=== PATIENT | male | born 1955 | race Caucasian/White ===

== ENCOUNTER 2019-10-16 17:50 | Inpatient (IN) | payer OTHER ==
[~2019-10-16] VITALS: Ht 172.7 cm; Wt 137.0 kg
[2019-10-16] MEDS ORDERED: HEPARIN SOD (PORCINE) 5,000 UNIT/ML VIAL IV ONE (19:00)
[2019-10-16] MEDS ORDERED: AMIODARONE HCL 150MG 100 ML IV SCH (19:00)
[2019-10-16] MEDS ORDERED: AMIODARONE HCL 360MG 200 ML IV SCH (19:00)
[2019-10-16] MEDS ORDERED: ASPIRIN 81 MG CHEW TAB PO ONE ×2 (19:00→22:15)
[2019-10-16 19:03] LABS: BASOPHILS % 0.3 % (0.0-1.0); EOSINOPHILS # (AUTO) 0.1 (0.0-0.4); EOSINOPHILS % 1.2 % (0.0-6.0); HEMATOCRIT 48.3 % (38.2-49.6); HEMOGLOBIN 15.6 g/dL (14.0-18.0); LYMPHOCYTES # (AUTO) 2.6 (1.0-3.2); MEAN CORPUSCULAR HEMOGLOBIN 31.1 pg (28-32); MEAN CORPUSCULAR HGB CONC 32.3 g/dL (31-35); MEAN CORPUSCULAR VOLUME 96.2 fL (81-99); MONOCYTES # (AUTO) 0.8 (0.2-0.8); MONOCYTES % 7.3 % (4.4-11.3); NEUTROPHILS # (AUTO) 6.8 (2.1-6.9); NEUTROPHILS % 65.9 % (38.7-80.0); PLATELET COUNT 246 x10e3/uL (140-360); RED BLOOD COUNT 5.02 x10e6/uL (4.3-5.7); RED CELL DISTRIBUTION WIDTH 15.4 % (11.7-14.4)
[2019-10-16] MEDS ORDERED: DILTIAZEM HCL 5 MG/ML 5 ML VIAL IV STA (19:04)
[2019-10-16] MEDS ORDERED: AMIODARONE HCL 150MG 100 ML ONE (19:09)
[2019-10-16 19:10] LABS: INR 1.07; PARTIAL THROMBOPLASTIN TIME 25.9 seconds (23.8-35.5); PROTHROMBIN TIME 14.6 seconds (11.9-14.5)
[2019-10-16 19:18] LABS: ALBUMIN 4.1 g/dL (3.5-5.0); ALBUMIN/GLOBULIN RATIO 1.6 (0.8-2.0); ANION GAP 11.4 mmol/L (8-16); CALCIUM 9.4 mg/dL (8.4-10.2); CREATININE, SERUM 1.25 mg/dL (0.72-1.25); POTASSIUM 4.4 mmol/L (3.5-5.1)
[2019-10-16] MEDS ORDERED: AMIODARONE 900MG 500 ML IV SCH (19:20)
[2019-10-16] MEDS ORDERED: AMIODARONE 900MG 500 ML IV ONE (19:21)
[2019-10-16] MEDS: AMIODARONE 900MG 500 ML IV SCH (19:27)
[2019-10-16] MEDS: HEPARIN 25,000 UNIT 1,000 UNIT in DEXTROSE 5% 250ML 250 ML IV SCH (19:30)
[2019-10-16 19:37] LABS: CREATINE KINASE MB 3.4 ng/mL (0-5.0); THYROID STIMULATING HORMONE 1.123 uIU/mL (0.350-4.940)
[2019-10-16] MEDS ORDERED: DIGOXIN INJ 0.25 MG/ML 2 ML AMP ONE (19:44)
[2019-10-16] MEDS ORDERED: DIGOXIN INJ 0.25 MG/ML 2 ML AMP IV ONE (19:45)
--- NOTE | 2019-10-16 20:28 | Diagnostic Imaging Report ---
EXAMINATION: CHEST SINGLE (PORTABLE) INDICATION: wide-complex afib RVR, acute CHF COMPARISON: None FINDINGS: AP view TUBES and LINES: None. LUNGS: Lungs are well inflated. There is right basilar opacity which could be due to effusion and or atelectasis. HEART AND MEDIASTINUM: The cardiomediastinal silhouette is unremarkable. BONES AND SOFT TISSUES: No acute osseous lesion. Soft tissues are unremarkable. UPPER ABDOMEN: No free air under the diaphragm. IMPRESSION: Right basilar opacity which could be due to effusion and or atelectasis. Signed by: Daron Reyez MD on 10/16/2019 8:26 PM
[2019-10-16] MEDS ORDERED: LIDOCAINE JELLY 2% 10ML URO-JET TOP ONE (21:15)
--- NOTE | 2019-10-16 21:15 | NUR ---
301 ml noted on bladder scan.
[2019-10-16] MEDS ORDERED: LIDOCAINE JELLY 2% 10ML URO-JET ONE (21:16)
[2019-10-16] MEDS ORDERED: DEXTROSE 50% SYRINGE 50 ML IV PRN (22:15)
[2019-10-16] MEDS: FAMOTIDINE 20 MG/2 ML VIAL IV SCH (22:15)
[2019-10-16] MEDS ORDERED: SODIUM CHLORIDE FLUSH 10 ML SYR INJ PRN (22:15)
--- OUTSIDE RECORDS SUMMARY | 2019-10-16 22:17 | XMS REPORT ---
Author Author [facility] Address Unknown Phone Unavailable Care Team Providers Care Health Occupations Instructor Name Role Phone Dale GONZALEZ Unavailable Unavailable Problems This patient has no known problems. Allergies, Adverse Reactions, Alerts This patient has no known allergies or adverse reactions. Medications This patient has no known medications. Results Test Description Test Time Test Comments Text Results Atomic Results Result Comments CHEST SINGLE (PORTABLE) 2019-10-16 20:21:00 [place] [id number] Patient Name: RUDY ADKINS MR #: [id number] : 1955 Age/Sex: 64/M Req #: [id number] Adm Physician: Ordered by: PREMA GONZALEZ MD Report #: [id number] Location: ER Room/Bed: Procedure: [id number] DX/CHEST SINGLE (PORTABLE) Exam Date: 10/16/19 Exam Time: 1954 REPORT STATUS: Signed EXAMINATION: CHEST SINGLE (PORTABLE) INDICAT ION: wide-complex afib RVR, acute CHF COMPARISON: None FINDINGS: AP view TUBES and LINES: None. LUNGS: Lungs are well inflated. There is right basilar opacity which could be due to effusion and or atelectasis. HEART AND MEDIASTINUM: The cardiomediastinal silhouette is unremarkable. BONES AND SOFT TISSUES: No acute osseous lesion. Soft tissues are unremarkable. UPPER ABDOMEN: No free air under the diaphragm. IMPRESSION: Right basilar opacity which could be due to effusion and or atelectasis. Signed by: Daron Kirk MD on 10/16/2019 8:26 PM Dictated By: DARON KIRK MD 25 Transcribed By: TRUDY on 10/16/192025 COPY TO: PREMA GONZALEZ MD
[2019-10-16 23:00] VITALS: BP 133/101
--- NOTE | 2019-10-16 23:14 | NUR ---
Pt thinks he already received pneumonia vaccine but is going to verify with PCP in the morning. Addendum: 10/16/19 at 2314 by Petrona Narvaez RN Amended: Links added.
[2019-10-16 23:17] VITALS: BP 120/90
[2019-10-17] VITALS (24 sets, daily range): BP systolic 85–143; BP diastolic 66–117
[2019-10-17] MEDS ORDERED: AMIODARONE HCL 360MG 200 ML IV SCH
--- NOTE | 2019-10-17 00:20 | NUR ---
PTT is therapeutic per weight based protocol. Repeat ptt in 6 hours. Addendum: 10/17/19 at 0106 by Petrona Narvaez RN Amended: Links added.
[2019-10-17] MEDS: AMIODARONE 900MG 500 ML IV SCH (01:09)
--- NOTE | 2019-10-17 04:55 | NUR ---
Judi baltazar present and drawing AM blood lab specimen.
[2019-10-17 05:22] LABS: BASOPHILS % 0.3 % (0.0-1.0); EOSINOPHILS # (AUTO) 0.2 (0.0-0.4); EOSINOPHILS % 1.5 % (0.0-6.0); HEMOGLOBIN 15.1 g/dL (14.0-18.0); LYMPHOCYTES # (AUTO) 2.5 (1.0-3.2); LYMPHOCYTES % 22.4 % (18.0-39.1); MEAN CORPUSCULAR HEMOGLOBIN 30.9 pg (28-32); MEAN CORPUSCULAR HGB CONC 32.1 g/dL (31-35); MEAN CORPUSCULAR VOLUME 96.1 fL (81-99); MONOCYTES # (AUTO) 0.9 (0.2-0.8); MONOCYTES % 8.1 % (4.4-11.3); NEUTROPHILS # (AUTO) 7.6 (2.1-6.9); NEUTROPHILS % 67.3 % (38.7-80.0); PLATELET COUNT 225 x10e3/uL (140-360); RED BLOOD COUNT 4.89 x10e6/uL (4.3-5.7); RED CELL DISTRIBUTION WIDTH 15.2 % (11.7-14.4)
--- NOTE | 2019-10-17 06:00 | NUR ---
PTT 49.8. Increase rate by 100units/hr and repeat ptt in 6 hours. Next ptt due at 1200 today. New rate 1100 units/hr. Addendum: 10/17/19 at 0607 by Petrona Narvaez RN Amended: Links added.
[2019-10-17 06:09] LABS: CREATINE KINASE MB 2.5 ng/mL (0-5.0)
[2019-10-17] MEDS ORDERED: TADALAFIL5 MG PO (06:14)
[2019-10-17] MEDS ORDERED: LEVOTHYROXINE75 MCG PO (06:15)
[2019-10-17] MEDS ORDERED: FARXIGA10 MG PO (06:16)
[2019-10-17] MEDS ORDERED: LISINOPRIL-HCT1 EACH PO (06:18)
[2019-10-17] MEDS ORDERED: MELOXICAM7.5 MG PO (06:18)
[2019-10-17 06:53] LABS: ALANINE AMINOTRANSFERASE 47 IU/L (0-55); ALBUMIN 3.7 g/dL (3.5-5.0); ALBUMIN/GLOBULIN RATIO 1.5 (0.8-2.0); ALKALINE PHOSPHATASE 29 IU/L (40-150); ANION GAP 14.2 mmol/L (8-16); BLOOD UREA NITROGEN 20 mg/dL (7-26); BUN/CREATININE RATIO 19 (6-25); CALCIUM 8.9 mg/dL (8.4-10.2); CARBON DIOXIDE 22 mmol/L (22-29); CHLORIDE 105 mmol/L (98-107); CREATININE, SERUM 1.03 mg/dL (0.72-1.25); EST GLOMERULAR FILTRATION RATE > 60 ML/MIN (60-); POTASSIUM 4.2 mmol/L (3.5-5.1); SODIUM 137 mmol/L (136-145)
[2019-10-17 07:13] LABS: CHOL/HDL RATIO 3.4 (3.9-4.7); CHOLESTEROL 160 MD/DL (0-199); GLUCOSE 119 mg/dL (74-118); HDL CHOLESTEROL 47 MG/DL (40-60); LDL CHOLESTEROL 100 MG/DL (60-130); TRIGLYCERIDES 67 MG/DL (0-149)
[2019-10-17] MEDS: INSULIN REGULAR, HUMAN 100 UNIT/1 ML 3ML VIAL SQ SCH ×4 (07:30→21:00)
[2019-10-17] MEDS: FAMOTIDINE 20 MG/2 ML VIAL IV SCH (10:10)
[2019-10-17] MEDS: LEVOTHYROXINE SODIUM 75 MCG TAB PO SCH (10:10)
--- NOTE | 2019-10-17 10:22 | NUR ---
LEFT MESSAGE REGARDING NEW CONSULT FOR DR Darlene MULTANI PER PATIENT REQUEST. PATIENT SEES DR MULTANI OUTPATIENT., LEFT MESSAGE WITH DR BEACH'S OFFICE NOTIFYING OF CHANGE AND CANCELATION OF CONSULT.
[2019-10-17] MEDS: METOPROLOL TARTRATE 25 MG TAB PO SCH ×2 (12:29→17:02)
[2019-10-17] MEDS: FUROSEMIDE INJ 10 MG/ML 4 ML VIAL IV SCH ×3 (13:00→22:00)
--- NOTE | 2019-10-17 14:28 | Consultation ---
DATE OF CONSULTATION: 10/18/2019 Pulmonary Critical Care Consultation CHIEF COMPLAINT: Rapid atrial fibrillation, right-sided heart failure and COPD. HISTORY OF PRESENT ILLNESS: The patient is a 64-year-old man. He has a vague history of COPD diagnosed by spirometry at work. He has never been on any inhalers. He has a history of obstructive sleep apnea and uses CPAP. The patient notes worsening leg edema for the past three weeks. He also started having scrotal edema a week or two ago. He also reports some heartburn or indigestion when he exerts himself. He came to the emergency department last night with worsening dyspnea and palpitations. He was found to have rapid atrial fibrillation. He was given an amiodarone drip and is now in the intensive care unit. He was also started on heparin. PAST SURGICAL HISTORY: Status post hydrocele repair. PAST MEDICAL HISTORY: 1. Benign prostatic hypertrophy. 2. Hypertension. 3. Type 2 diabetes. 4. Obstructive sleep apnea. 5. Spirometry suggesting COPD at work. SOCIAL HISTORY: The patient has been a lifelong smoker. He has been an occasional drinker. ALLERGIES: NO KNOWN DRUG ALLERGIES. FAMILY HISTORY: Significant for heart problems. REVIEW OF SYSTEMS: The patient is afebrile. He has no headache. He is not complaining of any neck pain. He has no chest pain. He does have some palpitations. He also notes some difficulty breathing. He has minimal cough. He has no abdominal pain. He has no nausea or vomiting. He does have some scrotal edema. He also has some leg edema. PHYSICAL EXAMINATION: VITAL SIGNS: The patient is afebrile. The blood pressure is 108/80 and the saturation is 99% on 2 L. Heart rate is 130 to 140. HEENT: Shows no facial swelling or erythema. CARDIAC: Reveals a regular rate and rhythm with normal S1 and S2. There are no murmurs or rubs heard. LUNGS: Auscultation of lungs reveals decreased breath sounds at the bases. There is no wheezing. ABDOMEN: Soft, nontender. There is no rebound or guarding. There is some scrotal edema. There is 1 to 2+ leg edema. NEUROLOGIC: No focal abnormalities on neurological exam. LABORATORY DATA: White blood cell count is 11.3 and hemoglobin is 15.1. Platelet count is 225. BUN to creatinine ratio is normal. The other electrolytes are within normal limits. BNP is 239. TSH is 1.123. RADIOGRAPHIC DATA: Chest x-ray shows a right basal opacity. IMPRESSION: 1. Atrial fibrillation with rapid ventricular response. 2. Acute and unspecified congestive heart failure. 3. Scrotal edema. 4. Prostatic hypertrophy. 5. History of prior hydrocele. 6. Obstructive sleep apnea. PLAN: 1. Continue amiodarone. 2. Continue heparin. 3. Diuretics as needed. 4. Diltiazem as needed. 5. Continue CPAP. Trevon Zaragoza MD [facility]/MODL /[id number]
[2019-10-17] MEDS: METOPROLOL TARTRATE INJ 1 MG/ML VIAL IV PRN (14:45)
[2019-10-17 15:32] LABS: CREATINE KINASE MB 2.2 ng/mL (0-5.0)
[2019-10-17] MEDS ORDERED: AMBIEN10 MG PO (16:03)
[2019-10-17] MEDS: HEPARIN 25,000 UNIT 1,000 UNIT in DEXTROSE 5% 250ML 250 ML IV SCH (16:52)
[2019-10-17] MEDS: AMIODARONE HCL 200 MG TAB PO SCH (17:02)
--- NOTE | 2019-10-17 18:54 | Consultation ---
DATE OF CONSULTATION: 10/17/2019 Cardiology Consultation REQUESTING PHYSICIAN: Edwardo Mar MD REASON FOR CONSULTATION: Atrial fibrillation with rapid ventricular response. HISTORY OF PRESENT ILLNESS: This is a 64-year-old male with history of hypothyroidism and diabetes mellitus, who presents with complaints of lower extremity edema. The patient reports he has been having what he describes as heartburn with exertion for the last year, which has been progressive since onset such that he can no longer climb a flight of stairs without symptoms. He noted lower extremity swelling, beginning 3 weeks ago and attempted to treat this himself with compression stockings. However, he notes that his lower extremity swelling worsened 3 days ago with progressive swelling and swelling in his scrotum. He therefore presented to the ER for further evaluation. He denies any chest pain or shortness of breath, but he does note he is short of breath with lying down for the last couple of months despite use of CPAP. On evaluation in the ER, he was found to be in atrial fibrillation with rapid ventricular response for which Cardiology is consulted for management. REVIEW OF SYSTEMS: Negative except as per HPI. PAST MEDICAL HISTORY: 1. Diabetes mellitus type 2. 2. Hypothyroidism. 3. Benign prostatic hypertrophy. PAST SURGICAL HISTORY: 1. Hydrocele surgery. 2. Acromionectomy. ALLERGIES: NO KNOWN DRUG ALLERGIES. MEDICATIONS: Please see medication list. SOCIAL HISTORY: He reports he previously smoked one pack a day for decades, but now smokes cigars a few times a week. He does drink, but denies any illicit drugs. FAMILY HISTORY: Pertinent for father, who required ablation and mother with coronary artery disease with stent insertion. PHYSICAL EXAMINATION: VITAL SIGNS: Temperature 97.8 degrees, pulse 136, respiratory rate 24, blood pressure 118/82, and oxygen saturation 98% on room air. GENERAL: A morbidly obese gentleman, in no acute distress. Well developed, well nourished. HEENT: Normocephalic, atraumatic. Pupils equal. No scleral icterus. NECK: Supple. No thyromegaly or cervical lymphadenopathy. No carotid bruits. LUNGS: Clear to auscultation bilaterally. No wheezes or crackles. CARDIOVASCULAR: Irregularly irregular, tachycardic. Normal S1, S2. No murmur appreciated. ABDOMEN: Soft, nontender. EXTREMITIES: 3+ pitting edema. NEUROLOGIC: Nonfocal exam. LABORATORY DATA: CBC 11.3, hemoglobin 15.1, hematocrit 47, platelets 225. Sodium 137, potassium 4.2, chloride 105, CO2 of 22. BUN 20, creatinine 1.03. Troponin 0.073. BNP 239. Cholesterol 160, LDL 100, HDL 47, triglycerides 67. EKG, atrial fibrillation with rapid ventricular response, left axis deviation, right bundle-branch block. Echocardiogram demonstrates severe systolic left ventricular dysfunction with LVEF of 20% to 25%. No significant valvular abnormalities were appreciated. Chest x-ray, right basilar opacity which could be due to effusion and/or atelectasis. IMPRESSION: 1. Acute systolic heart failure. 2. Atrial fibrillation with rapid ventricular response. 3. Angina. 4. Diabetes mellitus. 5. Hypothyroidism. 6. Benign prostatic hyperplasia. RECOMMENDATIONS: No evidence of myocardial infarction on serial cardiac biomarkers. Start aspirin as well as atorvastatin. Given progressive angina, the patient will need ischemic evaluation. Once his heart rate is controlled and he is euvolemic, start the patient on metoprolol for rate control. Continue amiodarone protocol. Start p.o. amiodarone this evening. Continue heparin drip for CVA prophylaxis. Anticoagulation was discussed with the patient and decision was made for the DOAC. The patient was started on Lasix, given his volume overload. He will need to be transitioned to metoprolol succinate upon discharge. Continue JUSTEN inhibitor if renal function is stable. Thank you for this consult. We will continue to follow. Tami Miramontes MD [facility]/MODL /[id number]
--- NOTE | 2019-10-17 20:28 | NUR ---
PTT 47.7- Increased heparin gtt from 1100 un/hr to 1200 un/hr per protocol. Witnessed by Shayla STEIN.
[2019-10-17] MEDS ORDERED: ATORVASTATIN 40 MG TAB PO SCH (21:00)
[2019-10-17] MEDS ORDERED: ATORVASTATIN 20 MG TAB PO SCH (21:00)
[2019-10-17] MEDS: FAMOTIDINE 20 MG TAB PO SCH (21:27)
[2019-10-18] VITALS (24 sets, daily range): BP systolic 84–131; BP diastolic 64–108
--- NOTE | 2019-10-18 01:00 | Consultation ---
DATE OF CONSULTATION: 10/17/2019 Dr. James Parker dictating the consultation for Dr. Mar and Dr. Trevon Bedolla. REASON FOR CONSULTATION: Urinary retention. HISTORY: This is a 64-year-old male, known to me since eight years ago. I did a hydrocelectomy on the patient. The patient has come to the hospital because of pressure in the chest as well as shortness of breath. The shortness of breath got worse, the patient got worried and came to the ER. In the emergency room, he was noted to be in atrial fibrillation and he was admitted to the intensive care unit for treatment and appropriate consultations have been obtained. From the urological standpoint, the patient has an indwelling Mireles catheter because he could not urinate. He had 321 mL of urine in the bladder yesterday when he said he had pressure. The patient states that over the last 2-3 weeks, he has noted that he has more difficulties urinating, having frequency, urgency, dribbling, split flow and feeling of incomplete voiding. For years, he has been on Flomax, which apparently did not work well. He also has been on Hytrin also did not work well and he states that daily Cialis 5 mg is what makes him urinate better. The patient had to have a coude catheter put in yesterday. I wonder if he has a very high-riding and will need to have further evaluation in the future. Examination is deferred at this time. The patient is eating, although I looked at his scrotum and it seems like he has a recurrent hydrocele, probably caused by pushing to urinate that the patient had been doing over the last 3 to 5 days. PAST MEDICAL HISTORY: The patient has had hypertension, diabetes mellitus type 2, obstructive sleep apnea, and COPD. PAST SURGICAL HISTORY: Urological. He had a hydrocele repair, left-sided in 2011. SOCIAL HISTORY: He is . He is a lifelong smoker and has continued to smoke. MEDICATIONS: The patient is at the present time on; metoprolol 5 mg as needed, furosemide 40 mg every 8 hours, metoprolol 25 mg p.o. every 6 hours, and levothyroxine 150 mcg daily. He is receiving now heparin IV. He is getting insulin human regular as per protocol; zolpidem 10 mg, which he takes at night; atorvastatin 40 mg, which he takes at night; aspirin 81 mg, which he takes daily in the mornings; famotidine; Pepcid 20 mg every 12 hours twice a day; and amiodarone 200 mg twice a day. IMPRESSION: Urinary retention, 321 mL residual, indwelling Mireles catheter. RECOMMENDATION: At present, I discussed with the patient that the 1st thing I would do is when his fluids are being better controlled that he has lost some of his edema. He is able to breathe better today. We will give him a voiding trial probably Sunday. If he is not able to urinate into the bladder better, than he will need to have a Mireles catheter until such time that his atrial fibrillation is under control. I told him usually at this point, it would be a weight of approximately 2-3 months until we can put him on Lovenox to do surgery or he has other treatments that we can take him off the blood thinners. The patient is also aware that if this is going to extent for 2-3 months that catheters have complications of erosion, bladder spasm, infections, and we will treat it accordingly as it happens. Currently, he is on daily catheter care. MD MAHENDRA Cabrera/JER /[id number]
[2019-10-18] MEDS: METOPROLOL TARTRATE 50 MG TAB PO SCH ×6 (03:00→21:10)
--- NOTE | 2019-10-18 03:00 | NUR ---
PTT 52.7- therapeutic. No changes made to rate per protocol.
[2019-10-18 05:16] LABS: BASOPHILS % 0.3 % (0.0-1.0); EOSINOPHILS # (AUTO) 0.1 (0.0-0.4); EOSINOPHILS % 1.3 % (0.0-6.0); HEMATOCRIT 47.4 % (38.2-49.6); HEMOGLOBIN 15.1 g/dL (14.0-18.0); LYMPHOCYTES # (AUTO) 2.4 (1.0-3.2); LYMPHOCYTES % 26.1 % (18.0-39.1); MEAN CORPUSCULAR HEMOGLOBIN 30.8 pg (28-32); MEAN CORPUSCULAR HGB CONC 31.9 g/dL (31-35); MEAN CORPUSCULAR VOLUME 96.7 fL (81-99); MONOCYTES # (AUTO) 0.9 (0.2-0.8); MONOCYTES % 9.2 % (4.4-11.3); NEUTROPHILS # (AUTO) 5.8 (2.1-6.9); NEUTROPHILS % 62.8 % (38.7-80.0); PLATELET COUNT 231 x10e3/uL (140-360); RED CELL DISTRIBUTION WIDTH 15.2 % (11.7-14.4)
[2019-10-18 05:55] LABS: ALANINE AMINOTRANSFERASE 39 IU/L (0-55); ALBUMIN 3.5 g/dL (3.5-5.0); ALBUMIN/GLOBULIN RATIO 1.4 (0.8-2.0); ALKALINE PHOSPHATASE 28 IU/L (40-150); ANION GAP 10.3 mmol/L (8-16); BLOOD UREA NITROGEN 19 mg/dL (7-26); BUN/CREATININE RATIO 21 (6-25); CALCIUM 8.7 mg/dL (8.4-10.2); CARBON DIOXIDE 24 mmol/L (22-29); CHLORIDE 107 mmol/L (98-107); CREATININE, SERUM 0.92 mg/dL (0.72-1.25); EST GLOMERULAR FILTRATION RATE > 60 ML/MIN (60-); GLUCOSE 130 mg/dL (74-118); POTASSIUM 4.3 mmol/L (3.5-5.1); SODIUM 137 mmol/L (136-145)
[2019-10-18] MEDS: FUROSEMIDE INJ 10 MG/ML 4 ML VIAL IV SCH ×4 (06:05→21:11)
[2019-10-18] MEDS: LEVOTHYROXINE SODIUM 75 MCG TAB PO SCH (06:06)
[2019-10-18] MEDS: INSULIN REGULAR, HUMAN 100 UNIT/1 ML 3ML VIAL SQ SCH ×4 (07:30→21:00)
[2019-10-18] MEDS: ASPIRIN 81 MG ENTERIC COATED PO SCH (08:17)
[2019-10-18] MEDS: AMIODARONE HCL 200 MG TAB PO SCH ×2 (08:18→18:09)
[2019-10-18] MEDS: FAMOTIDINE 20 MG TAB PO SCH ×2 (08:18→21:10)
[2019-10-18] MEDS: MUPIROCIN 2% OINT 22 GM TUBE TOP SCH ×2 (11:08→18:09)
--- NOTE | 2019-10-18 13:27 | Progress Note ---
DATE: 10/18/2019 SUBJECTIVE: The patient was seen by Cardiology yesterday. He has received metoprolol and is being continued on amiodarone. He was also seen by Urology. PHYSICAL EXAMINATION: VITAL SIGNS: The patient is afebrile. The vital signs are stable. CARDIAC: Reveals regular rate and rhythm with normal S1 and S2. There are no murmurs or rubs heard. LUNGS: Auscultation of lungs shows clear breath sounds bilaterally. There is no wheezing. ABDOMEN: Soft, nontender. There is no rebound or guarding. EXTREMITIES: Show no leg edema or calf tenderness. There is no cyanosis or clubbing. SKIN: Shows no rashes. NEUROLOGIC: Shows no focal abnormalities. LABORATORY DATA: BUN to creatinine ratio is normal. The other electrolytes within normal limits. White blood cell count is 9.2 and hemoglobin is 15.1. The platelet count is 231. IMPRESSION: 1. Atrial fibrillation with rapid ventricular response. 2. Acute on chronic congestive heart failure, unspecified. 3. Scrotal edema. 4. Prostatic hypertrophy. 5. Obstructive sleep apnea. PLAN: 1. Continue amiodarone and Lopressor. 2. Repeat echocardiogram. 3. Continue anticoagulation. 4. Continue Mireles. 5. CPAP at night. Trevon Zaragoza MD [facility]/JER /[id number]
[2019-10-18] MEDS: HEPARIN 25,000 UNIT 1,000 UNIT in DEXTROSE 5% 250ML 250 ML IV SCH (19:00)
[2019-10-18] MEDS: ZOLPIDEM TARTRATE 10 MG TAB PO PRN (21:10)
[2019-10-19] VITALS (21 sets, daily range): BP systolic 89–158; BP diastolic 60–134
[2019-10-19] MEDS: METOPROLOL TARTRATE 50 MG TAB PO SCH ×3 (03:27→15:14)
[2019-10-19 05:39] LABS: BASOPHILS % 0.3 % (0.0-1.0); EOSINOPHILS # (AUTO) 0.1 (0.0-0.4); EOSINOPHILS % 1.4 % (0.0-6.0); HEMATOCRIT 46.1 % (38.2-49.6); HEMOGLOBIN 15.1 g/dL (14.0-18.0); LYMPHOCYTES # (AUTO) 2.2 (1.0-3.2); MEAN CORPUSCULAR HEMOGLOBIN 31.7 pg (28-32); MEAN CORPUSCULAR HGB CONC 32.8 g/dL (31-35); MEAN CORPUSCULAR VOLUME 96.8 fL (81-99); MONOCYTES # (AUTO) 0.9 (0.2-0.8); MONOCYTES % 9.2 % (4.4-11.3); NEUTROPHILS # (AUTO) 6.3 (2.1-6.9); NEUTROPHILS % 65.8 % (38.7-80.0); PLATELET COUNT 210 x10e3/uL (140-360); RED BLOOD COUNT 4.76 x10e6/uL (4.3-5.7); RED CELL DISTRIBUTION WIDTH 15.1 % (11.7-14.4)
[2019-10-19 05:56] LABS: ANION GAP 9.7 mmol/L (8-16); BLOOD UREA NITROGEN 21 mg/dL (7-26); BUN/CREATININE RATIO 20 (6-25); CALCIUM 8.7 mg/dL (8.4-10.2); CARBON DIOXIDE 28 mmol/L (22-29); CHLORIDE 106 mmol/L (98-107); CREATININE, SERUM 1.06 mg/dL (0.72-1.25); EST GLOMERULAR FILTRATION RATE > 60 ML/MIN (60-); GLUCOSE 133 mg/dL (74-118); POTASSIUM 3.7 mmol/L (3.5-5.1); SODIUM 140 mmol/L (136-145)
[2019-10-19] MEDS: LEVOTHYROXINE SODIUM 75 MCG TAB PO SCH (06:17)
[2019-10-19] MEDS: FUROSEMIDE INJ 10 MG/ML 4 ML VIAL IV SCH ×2 (06:17→15:14)
[2019-10-19] MEDS: INSULIN REGULAR, HUMAN 100 UNIT/1 ML 3ML VIAL SQ SCH ×4 (07:14→21:00)
[2019-10-19] MEDS: ASPIRIN 81 MG ENTERIC COATED PO SCH (08:01)
[2019-10-19] MEDS: FAMOTIDINE 20 MG TAB PO SCH ×2 (08:01→21:00)
[2019-10-19] MEDS: MUPIROCIN 2% OINT 22 GM TUBE TOP SCH ×2 (08:01→16:51)
[2019-10-19] MEDS: AMIODARONE HCL 200 MG TAB PO SCH ×2 (08:01→16:51)
--- NOTE | 2019-10-19 09:51 | Diagnostic Imaging Report ---
EXAMINATION: CHEST SINGLE (PORTABLE) INDICATION: Shortness of breath. COMPARISON: Chest radiograph 2019. FINDINGS: TUBES and LINES: None. LUNGS: Lungs are moderately inflated. Persistent patchy opacities at the right lung base. No evidence of pulmonary edema. PLEURA: No pleural effusion or pneumothorax. HEART AND MEDIASTINUM: The cardiomediastinal silhouette is unremarkable. There are atherosclerotic calcifications within the aorta. BONES AND SOFT TISSUES: No acute osseous lesion. Soft tissues are unremarkable. UPPER ABDOMEN: No free air under the diaphragm. IMPRESSION: Persistent patchy right lower lung opacities, which may represent atelectasis or pneumonia in the appropriate clinical setting. Signed by: Dr. Kaushal Austin MD on 10/19/2019 9:48 AM
[2019-10-19] MEDS: METOPROLOL TARTRATE INJ 1 MG/ML VIAL IV PRN (10:30)
--- NOTE | 2019-10-19 11:35 | Progress Note ---
DATE: 10/19/2019 Pulmonary Critical Care Progress Note SUBJECTIVE: The patient still has some tachycardia and atrial fibrillation. He is now on p.o. amiodarone as well as labetalol. He complains of some mild dyspnea and anxiety. He still has a Mireles catheter in place. PHYSICAL EXAMINATION: VITAL SIGNS: The blood pressure is 128/84 and the saturation is 98%. The pulse is 120 to 130. The patient is afebrile. HEENT: Shows no facial swelling or erythema. CARDIAC: Reveals an irregularly irregular rhythm with normal S1 and S2. There are no murmurs or rubs. RESPIRATORY: Auscultation of lungs reveal clear breath sounds bilaterally. There is no wheezing. ABDOMEN: Soft and nontender. There is no rebound or guarding. EXTREMITIES: Show 1 to 2+ leg edema. LABORATORY DATA: CBC is within normal limits. BUN to creatinine ratio is normal. The other electrolytes are within normal limits. IMPRESSION: 1. Atrial fibrillation with rapid ventricular response. 2. Acute on chronic congestive heart failure. 3. Scrotal edema. 4. Obstructive sleep apnea. 5. Prostatic hypertrophy. PLAN: 1. Continue amiodarone and Lopressor. 2. Continue echocardiogram. 3. Continue anticoagulation. 4. Continue Mireles. 5. CPAP at night. Trevon Zaragoza MD [facility]/MODL /[id number]
--- NOTE | 2019-10-19 13:51 | Progress Note ---
DATE: 10/19/2019 Cardiology Progress Note SUBJECTIVE: No major events overnight. Remains in atrial fibrillation with RVR. No short of breath this morning. OBJECTIVE: VITAL SIGNS: Temperature afebrile, pulse 125, respiratory rate 21, blood pressure 152/100, saturating 98% on room air. GENERAL: Middle-aged man, in no acute distress. CARDIOVASCULAR: Irregular rate and rhythm. Tachycardic. No murmurs, rubs, or gallops. LUNGS: Clear to auscultation anteriorly. ABDOMEN: Obese, soft, nontender, nondistended. NEURO AND PSYCH: Alert and oriented to person, place, and time. Normal affect. INPATIENT MEDICATIONS: Reviewed. LABORATORY DATA: Reviewed. TELEMETRY DATA: Reviewed. Remains in atrial fibrillation with RVR. ASSESSMENT: 1. Acute systolic heart failure exacerbation. 2. Atrial fibrillation with rapid ventricular response. PLAN: Plan for KARLEY cardioversion tomorrow. Continue IV heparin. If cardioversion successful, we will place change roof bolter to oral anticoagulants. Troponins remain negative. Thank you for this consult. We will continue to follow. MD IAN Luz/JER /[id number]
--- NOTE | 2019-10-19 14:16 | Progress Note ---
DATE: 10/19/2019 Cardiology Progress Note SUBJECTIVE: No major events overnight. Remains in atrial fibrillation with RVR. OBJECTIVE: VITAL SIGNS: Temperature afebrile, pulse 125, respiratory rate 21, blood pressure 128/84, saturating 98% on room air. GENERAL: Middle-aged man, in no acute distress. CARDIOVASCULAR: Tachycardic, irregular. No murmurs, rubs, or gallops. LUNGS: Clear to auscultation anteriorly. ABDOMEN: Obese, soft, nontender, nondistended. NEURO AND PSYCH: Alert and oriented to person, place, and time. Normal affect. INPATIENT MEDICATIONS: Reviewed. LABORATORY DATA: Reviewed. TELEMETRY DATA: Reviewed, shows atrial fibrillation with RVR. ASSESSMENT: 1. Acute systolic heart failure. 2. Atrial fibrillation with rapid ventricular response. 3. Diabetes. 4. Hypothyroidism. 5. Benign prostatic hypertrophy. RECOMMENDATIONS: Continues to remain atrial fibrillation with RVR. Continue p.o. amiodarone. Uptitrate oral metoprolol to 50 mg q.6 hours. Hemodynamically stable. If rate control is difficult we will plan for KARLEY cardioversion on Sunday. MD IAN Luz/JER /[id number]
[2019-10-19] MEDS: HEPARIN 25,000 UNIT 1,000 UNIT in DEXTROSE 5% 250ML 250 ML IV SCH (19:00)
[2019-10-19] MEDS ORDERED: ONDANSETRON HCL INJ 2MG/ML 2ML 2 MG/ML VIAL IV PRN (19:15)
[2019-10-19] MEDS ORDERED: ALBUTEROL/IPRATROPIUM 3 ML NEB NEB PRN (19:15)
[2019-10-19] MEDS ORDERED: ACETAMINOPHEN 325 MG TAB PO PRN (19:15)
[2019-10-20] VITALS (25 sets, daily range): BP systolic 89–133; BP diastolic 56–105
[2019-10-20] MEDS: ZOLPIDEM TARTRATE 10 MG TAB PO PRN
[2019-10-20] MEDS: METOPROLOL TARTRATE 50 MG TAB PO SCH ×6 (02:14→21:20)
[2019-10-20] MEDS: LEVOTHYROXINE SODIUM 75 MCG TAB PO SCH (04:55)
[2019-10-20 05:38] LABS: BASOPHILS % 0.5 % (0.0-1.0); EOSINOPHILS # (AUTO) 0.2 (0.0-0.4); EOSINOPHILS % 1.9 % (0.0-6.0); HEMATOCRIT 46.5 % (38.2-49.6); HEMOGLOBIN 14.8 g/dL (14.0-18.0); LYMPHOCYTES # (AUTO) 2.8 (1.0-3.2); MEAN CORPUSCULAR HEMOGLOBIN 30.9 pg (28-32); MEAN CORPUSCULAR HGB CONC 31.8 g/dL (31-35); MEAN CORPUSCULAR VOLUME 97.1 fL (81-99); MONOCYTES # (AUTO) 0.8 (0.2-0.8); MONOCYTES % 9.7 % (4.4-11.3); NEUTROPHILS # (AUTO) 4.6 (2.1-6.9); NEUTROPHILS % 54.7 % (38.7-80.0); PLATELET COUNT 251 x10e3/uL (140-360); RED BLOOD COUNT 4.79 x10e6/uL (4.3-5.7); RED CELL DISTRIBUTION WIDTH 14.9 % (11.7-14.4)
[2019-10-20 06:04] LABS: ANION GAP 12.7 mmol/L (8-16); CREATININE, SERUM 1.28 mg/dL (0.72-1.25); MAGNESIUM 1.9 MG/DL (1.3-2.1); PHOSPHORUS 3.3 MG/DL (2.3-4.7); POTASSIUM 3.7 mmol/L (3.5-5.1)
--- NOTE | 2019-10-20 06:14 | NUR ---
PTT 82.6- Decreased heparin gtt rate to 1100 un/hr per protocol. Witnessed by Caro STEIN.
[2019-10-20] MEDS: FUROSEMIDE INJ 10 MG/ML 4 ML VIAL IV SCH ×3 (06:35→21:20)
[2019-10-20] MEDS: INSULIN REGULAR, HUMAN 100 UNIT/1 ML 3ML VIAL SQ SCH ×3 (07:22→16:30)
[2019-10-20] MEDS: FAMOTIDINE 20 MG TAB PO SCH ×2 (08:52→21:20)
[2019-10-20] MEDS: MUPIROCIN 2% OINT 22 GM TUBE TOP SCH ×2 (08:52→17:09)
[2019-10-20] MEDS: ASPIRIN 81 MG ENTERIC COATED PO SCH (08:52)
[2019-10-20] MEDS: AMIODARONE HCL 200 MG TAB PO SCH ×2 (08:52→17:08)
--- NOTE | 2019-10-20 11:56 | Progress Note ---
DATE: 10/20/2019 The patient today has an indwelling Mireles catheter. Waiting to have a cardioversion for his atrial fibrillation, which is still running at about 117 to 122. The patient and I talked that today would not be the day that I remove the catheter. We will give the order to do that tomorrow morning. If they do the cardioversion today, but regardless, I will wait until after the cardioversion to give him a voiding trial. MD MAHENDRA Cabrera/MODL /[id number]
--- NOTE | 2019-10-20 15:22 | Progress Note ---
DATE: 10/20/2019 SUBJECTIVE: The patient's cardioversion was postponed today because of scheduling problems. He has no new complaints. PHYSICAL EXAMINATION: VITAL SIGNS: The patient is afebrile. The blood pressure is 100/65 and the heart rate is 120. Saturation is 99%. HEENT: Shows no facial swelling or erythema. CARDIAC: Reveals a regular rate and rhythm with a normal S1, S2. There are no murmurs or rubs. LUNGS: Auscultation of lungs reveals rhonchorous breath sounds bilaterally. There is no wheezing. ABDOMEN: Soft, nontender. There is no rebound or guarding. EXTREMITIES: Show no leg edema or calf tenderness. There is no cyanosis or clubbing. SKIN: Shows no rashes. NEUROLOGIC: Shows no focal abnormalities. IMPRESSION: 1. Atrial fibrillation with rapid ventricular response. 2. Acute on chronic congestive heart failure. 3. Obstructive sleep apnea. 4. Prostatic hypertrophy. PLAN: 1. Continue current cardiac regimen. 2. Continue anticoagulation. 3. Transesophageal echo and cardioversion scheduled for tomorrow. 4. Continue Mireles. The patient will have further urology evaluation after treatment of the atrial fibrillation. 5. Continue CPAP. MD LEW Peters/JER /[id number]
--- NOTE | 2019-10-20 20:08 | Progress Note ---
DATE: 10/20/2019 Cardiology Progress Note SUBJECTIVE: The patient denies chest pain or shortness of breath. OBJECTIVE: VITAL SIGNS: Temperature 97.5 degrees, pulse 109, respiratory rate 23, blood pressure 120/105 oxygen saturation 99% on room air. GENERAL: Awake, alert, in no acute distress. LUNGS: Clear to auscultation bilaterally. No wheezes or crackles. CARDIOVASCULAR: Tachycardic, irregularly irregular. No murmur. Normal S1, S2. ABDOMEN: Soft, nontender. EXTREMITIES: 2+ pitting edema. CARDIAC MEDICATIONS: Amiodarone 200 mg p.o. b.i.d., metoprolol 50 mg p.o. q.6 hours, furosemide 40 mg IV q.8 hours, aspirin 81 mg p.o. daily, levothyroxine 150 mcg p.o. daily, heparin drip. LABORATORY DATA: WBC 8.45, hemoglobin 14.8, hematocrit 46.5, platelets 251. Sodium 142, potassium 3.7, chloride 102, CO2 31, BUN 22, creatinine 1.28. TELEMETRY: Telemetry was personally reviewed and interpreted, revealing atrial fibrillation with rapid ventricular response. IMPRESSION: 1. Atrial fibrillation with rapid ventricular response. 2. Acute systolic heart failure. 3. Diabetes mellitus. 4. Hypothyroidism. 5. BPH. RECOMMENDATIONS: The patient will need ischemic evaluation given his complaint of chest pain and acute systolic heart failure. However, at this time given inability to achieve rate control, plan for KARLEY cardioversion. This was delayed until tomorrow due to lack of anesthesia availability. N.p.o. after midnight. Continue heparin drip. Continue current cardiac medications. Continue IV Lasix. If renal function worsens further in the morning, we will need to decrease dosing. The patient will need to transition metoprolol succinate once ready for discharge. Start JUSTEN inhibitor if renal function is stable. Thank you for this consult. We will continue to follow. Tami Miramontes MD [facility]/MOD[facility] /[id number]
[2019-10-20] MEDS: HEPARIN 25,000 UNIT 1,000 UNIT in DEXTROSE 5% 250ML 250 ML IV SCH (20:18)
[2019-10-21] VITALS (15 sets, daily range): BP systolic 93–142; BP diastolic 70–104
[2019-10-21] MEDS: METOPROLOL TARTRATE INJ 1 MG/ML VIAL IV PRN (02:19)
[2019-10-21] MEDS: METOPROLOL TARTRATE 50 MG TAB PO SCH (03:34)
[2019-10-21] MEDS ORDERED: HEPARIN 25,000 UNIT DRIP IV ONE (05:36)
[2019-10-21 05:54] LABS: ANION GAP 12.5 mmol/L (8-16); CREATININE, SERUM 1.25 mg/dL (0.72-1.25); POTASSIUM 3.5 mmol/L (3.5-5.1)
[2019-10-21] MEDS: LEVOTHYROXINE SODIUM 75 MCG TAB PO SCH (06:26)
[2019-10-21] MEDS: FUROSEMIDE INJ 10 MG/ML 4 ML VIAL IV SCH ×2 (06:26→13:46)
[2019-10-21] MEDS ORDERED: BENZOCAINE 20% SPR 60 ML CAN ONE (07:03)
[2019-10-21] MEDS ORDERED: SODIUM CHLORIDE 0.9% 1000ML 1,000 ML ONE (07:03)
--- NOTE | 2019-10-21 07:48 | NUR ---
KARLEY W/DR. SHIPLEY 0704 in room 0710 time out 0711 hurricaine spray x2 0714 probe in 0723 bubble study 0733 probe out 0734 pt in afib, shocked at 120J converted to NSR. 0735 out of room, pt transported back to ICU. Report given to EMIL Jackman
[2019-10-21] MEDS: MUPIROCIN 2% OINT 22 GM TUBE TOP SCH ×2 (09:30→16:00)
[2019-10-21] MEDS: FAMOTIDINE 20 MG TAB PO SCH ×2 (09:53→22:00)
[2019-10-21] MEDS: ASPIRIN 81 MG ENTERIC COATED PO SCH (09:53)
[2019-10-21] MEDS: AMIODARONE HCL 200 MG TAB PO SCH ×2 (09:53→16:00)
[2019-10-21] MEDS: INSULIN REGULAR, HUMAN 100 UNIT/1 ML 3ML VIAL SQ SCH ×3 (11:37→22:00)
--- NOTE | 2019-10-21 12:11 | Progress Note ---
DATE: 10/21/2019 Cardiology Progress Note SUBJECTIVE: The patient denies chest pain. He was complaining of shortness of breath prior to his KARLEY cardioversion. OBJECTIVE: VITAL SIGNS: Temperature 98.5 degrees, pulse 130, respiratory rate 20, blood pressure 106/95, and oxygen saturation 96% on room air. GENERAL: Obese gentleman in no acute distress. Awake and alert. LUNGS: Clear to auscultation bilaterally. No wheezes or crackles. CARDIOVASCULAR: Tachycardic irregularly irregular. No murmur. Normal S1, S2. ABDOMEN: Soft and nontender. EXTREMITIES: 2+ pitting edema. CARDIAC MEDICATIONS: 1. Furosemide 40 mg IV q.8 hours. 2. Levothyroxine 150 mcg p.o. daily. 3. Metoprolol tartrate 50 mg p.o. q.6 hours. 4. Heparin drip. 5. Amiodarone 200 mg p.o. b.i.d. 6. Aspirin 81 mg p.o. daily. LABORATORY DATA: Sodium 140, potassium 3.5, chloride 103, CO2 of 28, BUN 24, and creatinine 1.25. Telemetry was personally reviewed and interpreted revealing atrial fibrillation, rapid ventricular response. ASSESSMENT: 1. Atrial fibrillation with rapid ventricular response. 2. Acute systolic heart failure. 3. Diabetes mellitus. 4. Hypothyroidism. 5. Benign prostatic hyperplasia. PLAN: KARLEY cardioversion was performed today with 120 joules with successful conversion to normal sinus rhythm. Continue amiodarone at current dose. Continue heparin drip. Consolidate metoprolol to metoprolol succinate. Anticoagulation was discussed with the patient. He has agreed to start Eliquis upon discharge. He was instructed that this may not be stopped for minimum of 4 weeks after cardioversion. Continue IV Lasix. Renal function is stable. If the patient is chest pain-free, we will need ischemic evaluation as an outpatient otherwise if he continues to have chest pain, we will need further cardiac evaluation while inpatient. Thank you for this consult. We will continue to follow. Tami Miramontes MD ABS/MODL /[id number]
[2019-10-21] MEDS ORDERED: MIDAZOLAM HCL 2 MG/2 ML VIAL ONE (13:54)
[2019-10-21] MEDS ORDERED: PROPOFOL IV EMULSION 10 MG/ML 50 ML VIAL ONE (14:20)
[2019-10-21] MEDS ORDERED: LIDOCAINE HCL 2% LOCAL INJ 5 ML SDV VIAL INJ ONE (14:20)
--- NOTE | 2019-10-21 14:28 | NUR ---
PT VOIDED 300CC URINE AT THIS TIME, POST RESIDUAL VOID AMOUNT 180 ON BLADDER SCANNER. PT DENIES ANY PAIN OR CRAMPING.
--- NOTE | 2019-10-21 16:40 | NUR ---
SPOKE TO REGARDING POST VOID RESIDUAL AT 207CC AFTER RESCAN RECEIVED ORDER TO REINSERT FRANK CATHETER.
[2019-10-21] MEDS ORDERED: METOPROLOL SUCCINATE 50 MG TAB XL PO SCH (17:00)
--- NOTE | 2019-10-21 17:50 | NUR ---
Pt received from ICU at this time. Pt is axo4 and able to verbalize needs. Denies any pain at this time. Coude catheter 16FR placed per physician orders and well tolerated by pt. Light yellow urine noted at time of insertion.
--- NOTE | 2019-10-21 18:01 | NUR ---
PT TRANSFERRED TO ROOM 292
[2019-10-21] MEDS: HEPARIN 25,000 UNIT 1,000 UNIT in DEXTROSE 5% 250ML 250 ML IV SCH (19:00)
--- NOTE | 2019-10-21 19:05 | NUR ---
Visited pt in room during nursing rounds. Patient alert and oriented x3. Pt ambulatory in room prn. On heparin drip at 11ml/hr per A-fib protocol. Pt states he feels fine. Post cardioversion today. SR on telemetry at this time. Call chawla within reach.
--- NOTE | 2019-10-21 20:29 | Operative Report ---
DATE OF PROCEDURE: 10/21/2019 SURGEON: Tami Miramontes MD PROCEDURE TITLE: Direct current cardioversion. INDICATION: Atrial fibrillation. PROCEDURE IN DETAIL: The patient was brought to the endoscopy suite in a fasting state after written informed consent was obtained. The patient was anticoagulated with heparin drip. Transesophageal echocardiogram was performed without evidence of thrombus in the left atrium or left atrial appendage. Sedation was managed by Anesthesiology. Pads were applied in the anterior and posterior approach with synchronized biphasic waveform at 120 joules. One shock was given with successful samaritan of sinus rhythm. Occasional PVCs were observed. The patient had no immediate postprocedure complication. Sinus rhythm was maintained and 12-lead EKG was requested. IMPRESSION: Successful direct current cardioversion with samaritan of sinus rhythm from atrial fibrillation with no immediate complication. Tami Miramontes MD ABS/MODL /[id number]
[2019-10-21] MEDS: FUROSEMIDE INJ 10 MG/ML 2 ML VIAL IV SCH (22:00)
[2019-10-22] VITALS (8 sets, daily range): BP systolic 111–150; BP diastolic 71–89
--- NOTE | 2019-10-22 | NUR ---
Received call from Sara (in tele office) and was informed patient has converted back to A-fib with HR ranging from 108 to 130s (non sustaining). Pt was assessed and he stated he feels fine. Will pass information to incoming dayshift tomorrow and possibly inform dredge runner in AM.
[2019-10-22] MEDS: LEVOTHYROXINE SODIUM 75 MCG TAB PO SCH (06:00)
[2019-10-22] MEDS: FUROSEMIDE INJ 10 MG/ML 2 ML VIAL IV SCH ×3 (06:00→21:24)
[2019-10-22 06:32] LABS: BASOPHILS % 0.4 % (0.0-1.0); EOSINOPHILS # (AUTO) 0.1 (0.0-0.4); EOSINOPHILS % 1.8 % (0.0-6.0); HEMATOCRIT 43.6 % (38.2-49.6); HEMOGLOBIN 14.2 g/dL (14.0-18.0); LYMPHOCYTES # (AUTO) 2.2 (1.0-3.2); LYMPHOCYTES % 30.4 % (18.0-39.1); MEAN CORPUSCULAR HEMOGLOBIN 31.3 pg (28-32); MEAN CORPUSCULAR HGB CONC 32.6 g/dL (31-35); MEAN CORPUSCULAR VOLUME 96.2 fL (81-99); MONOCYTES # (AUTO) 0.7 (0.2-0.8); MONOCYTES % 10.5 % (4.4-11.3); NEUTROPHILS % 56.3 % (38.7-80.0); PLATELET COUNT 206 x10e3/uL (140-360); RED BLOOD COUNT 4.53 x10e6/uL (4.3-5.7); RED CELL DISTRIBUTION WIDTH 14.7 % (11.7-14.4)
--- NOTE | 2019-10-22 06:49 | NUR ---
Spoke with Dr. Miramontes and informed about patient's conversion from Sinus rhythm to A-fib at midnight and HR ranging between 110 to 118. Pt asymptomatic. MD aware and ordered to increase dose of metoprolol from 100mg BID to 150mg BID and give 1st dose now.
[2019-10-22 07:03] LABS: INR 1.1; PROTHROMBIN TIME 14.9 seconds (11.9-14.5)
[2019-10-22 07:04] LABS: PARTIAL THROMBOPLASTIN TIME 45.4 seconds (23.8-35.5)
[2019-10-22 07:10] LABS: ANION GAP 12.2 mmol/L (8-16); CALCIUM 9.1 mg/dL (8.4-10.2); CREATININE, SERUM 1.22 mg/dL (0.72-1.25); MAGNESIUM 1.8 MG/DL (1.3-2.1); POTASSIUM 3.2 mmol/L (3.5-5.1)
[2019-10-22] MEDS: INSULIN REGULAR, HUMAN 100 UNIT/1 ML 3ML VIAL SQ SCH ×4 (07:30→20:46)
[2019-10-22] MEDS: METOPROLOL SUCCINATE 50 MG TAB XL PO SCH ×2 (07:59→16:11)
[2019-10-22] MEDS: AMIODARONE HCL 200 MG TAB PO SCH ×2 (08:00→16:10)
[2019-10-22] MEDS: FAMOTIDINE 20 MG TAB PO SCH ×2 (08:00→21:24)
[2019-10-22] MEDS: ASPIRIN 81 MG ENTERIC COATED PO SCH (08:00)
--- NOTE | 2019-10-22 10:26 | NUR ---
Nutrition Screen Note RD Recommendation for Physician: -Continue current diet per MD. Plan of Care: RD following, monitoring for tolerance and adequacy Nutrition reason for involvement: (RN consult- 2 gm Na and DM diet education Primary Diagnose(s): Royce, ySmoneib PMH: 1. Atrial fibrillation with rapid ventricular response. 2. Acute systolic heart failure. 3. Diabetes mellitus. 4. Hypothyroidism. 5. Benign prostatic hyperplasia. Ht: 68 in Wt: 302 lb BMI: 45.9 kg/m2 IBW:[address] Assessment: (10/21): 64 YOM seen resting in bed, finished breakfast tray in front of him. Pt reported he has a good appetite and is not use to the small portions here in the hospital. He denied N/V/C/D/chewing or swallowing issues as well as any food allergies. The pt was open to receiving education regarding DM and low Na diet. He reported he has been following a carb controlled diet for awhile but is new to the low Na diet. Pt was given educational handouts and he verbalized understanding. Pt had no other questions or concerns. Pt did state some GI issues when he first started different DM medications, but he has reported his diarrhea has since subsided. Chart reviewed. Labs and meds reviewed. POC GM: 96-169. Pt is on insulin. Will continue to monitor. Current Diet: low Na, 2000 calorie ADA diet Malnutrition Evaluation (10/21) The patient does not meet criteria for a specified degree of malnutrition at this time. Will re-evaluate at follow-up as appropriate. Diet Education Needs Assessment: Diet education indicated, pt accepted education. Diet Adequacy: Meeting calorie needs, Meeting protein needs Learner(s): pt Barriers: none Cultural/Language Modifications: none Readiness: acceptance Method: discussion, handout Topics: Low Na MNT, DM MNT, food label, meal planning, food logging, shopping tips, foods recommended and not recommended Understanding/Compliance: verbalized understanding, anticipate fair compliance Nutrition Care Level: low Signed: Wendy King RD, LD
[2019-10-22] MEDS ORDERED: POTASSIUM CHLORIDE 20 MEQ TAB CR PO ONE (11:10)
[2019-10-22] MEDS ORDERED: HEPARIN 25,000 UNIT DRIP IV ONE ×2 (11:33)
[2019-10-22] MEDS: HEPARIN 25,000 UNIT 1,200 UNIT in DEXTROSE 5% 250ML 250 ML IV SCH (11:35)
[2019-10-22] MEDS: MUPIROCIN 2% OINT 22 GM TUBE TOP SCH ×2 (11:58→21:24)
--- NOTE | 2019-10-22 12:47 | NUR ---
REC'D CALL FROM HAO AT [facility] [phone] [employer]: [facility] [phone] [facility] [phone] [facility] [employer] [phone] CALL FOR ANY DC NEEDS
[2019-10-22] MEDS ORDERED: ONDANSETRON HCL 4 MG ORAL DISINTEGRATING TAB PO PRN (13:45)
--- NOTE | 2019-10-22 14:35 | NUR ---
Patient placed on 2L NC at 1425 after reporting "chest tightness". Head of bed elevated.
[2019-10-22] MEDS ORDERED: DIGOXIN INJ 0.25 MG/ML 2 ML AMP IV NR (15:00)
--- NOTE | 2019-10-22 16:00 | NUR ---
Patient's IV infiltrated, discontinued with tip intact, applied gauze to site. Applied warm compress.
[2019-10-22] MEDS ORDERED: DIGOXIN 0.25 MG TAB PO NR (18:30)
--- NOTE | 2019-10-22 19:11 | NUR ---
Received bedside report from day nurse. Patient up and out of bed, no s/s of distress or c/o pain at this time. All safety measures in place. Family at bedside. Will continue to monitor.
--- NOTE | 2019-10-22 19:12 | NUR ---
Report given to Tawny Wooten RN. No distress noted. Pt AAOx3. Acyanotic. Spouse present at bedside.
--- NOTE | 2019-10-22 20:14 | Progress Note ---
DATE: 10/22/2019 Cardiology Progress Note SUBJECTIVE: The patient denies chest pain or shortness of breath at this time, however, he does endorse an episode of chest heaviness earlier today. He converted back to atrial fibrillation from normal sinus rhythm overnight. OBJECTIVE: VITAL SIGNS: Temperature 96.2 degrees, pulse 120, respiratory rate 19, blood pressure 114/76, and oxygen saturation 98% on room air. GENERAL: Obese woman, in no acute distress. Awake and alert. LUNGS: Clear to auscultation bilaterally. No wheezes or crackles. CARDIOVASCULAR: Tachycardic, irregularly irregular. No murmur. Normal S1 and S2. ABDOMEN: Soft and nontender. EXTREMITIES: 2+ pitting edema. CARDIAC MEDICATIONS: Metoprolol succinate 150 mg p.o. b.i.d., amiodarone 200 mg p.o. b.i.d., furosemide 40 mg IV q.8 hours, heparin drip, aspirin 81 mg p.o. daily, and levothyroxine 150 mcg p.o. daily. LABORATORY DATA: WBC 7.08, hemoglobin 14.2, hematocrit 43.6, and platelets 206. Sodium 143, potassium 3.2, chloride 103, CO2 31, BUN 23, and creatinine 1.22. Telemetry, atrial fibrillation with rapid ventricular response. IMPRESSION: 1. Atrial fibrillation with rapid ventricular response. 2. Acute systolic heart failure. 3. Diabetes mellitus. 4. Hypothyroidism. 5. Benign prostatic hypertrophy. RECOMMENDATIONS: KARLEY cardioversion was performed with conversion to normal sinus rhythm, however, the patient did not maintain sinus rhythm. Overnight, he converted back into atrial fibrillation. Continue amiodarone at current dose. Metoprolol was increased. One time start digoxin. Continue heparin drip. Given continued chest tenderness, plan for cardiac catheterization prior to discharge. He will be transitioned to Eliquis upon discharge. Discussed need for EP referral for PVI after rate control. Thank you for this consult. We will continue to follow. Tami Miramontes MD ABS/MODL /[id number]
--- NOTE | 2019-10-22 21:06 | NUR ---
PTT within therapeutic range at 68.3. No changes made to heparin drip rate. Currently running at 12 ml/hr. No s/s of bleeding or adverse effects noted. Will continue to monitor.
[2019-10-23] VITALS (8 sets, daily range): BP systolic 113–156; BP diastolic 62–84
[2019-10-23] MEDS: FUROSEMIDE INJ 10 MG/ML 2 ML VIAL IV SCH (05:57)
[2019-10-23] MEDS: LEVOTHYROXINE SODIUM 75 MCG TAB PO SCH (05:57)
--- NOTE | 2019-10-23 06:40 | NUR ---
Received bedside shift report from off going nurse. Patient is resting in bed, no acute distress noted. Call light within reach. Bed in the lowest position.
--- NOTE | 2019-10-23 06:45 | NUR ---
PTT within therapeutic range at 71.9. No changes made to heparin drip rate at this time. Currently running at 12 ml/hr. Daily PTT ordered for tomorrow per protocol.
[2019-10-23 06:47] LABS: ANION GAP 13.2 mmol/L (8-16); CALCIUM 10.1 mg/dL (8.4-10.2); CREATININE, SERUM 1.4 mg/dL (0.72-1.25); MAGNESIUM 1.8 MG/DL (1.3-2.1); POTASSIUM 4.2 mmol/L (3.5-5.1)
--- NOTE | 2019-10-23 06:47 | NUR ---
Bedside report given to day nurse. Patient awake and resting in bed, no s/s of distress at this time. All safety measures in place.
[2019-10-23] MEDS: INSULIN REGULAR, HUMAN 100 UNIT/1 ML 3ML VIAL SQ SCH ×4 (07:30→20:17)
[2019-10-23] MEDS: HEPARIN 25,000 UNIT 1,200 UNIT in DEXTROSE 5% 250ML 250 ML IV SCH (07:40)
[2019-10-23] MEDS: FAMOTIDINE 20 MG TAB PO SCH ×2 (08:00→20:46)
[2019-10-23] MEDS: DIGOXIN 0.25 MG TAB PO SCH (08:00)
[2019-10-23] MEDS: ASPIRIN 81 MG ENTERIC COATED PO SCH (08:00)
[2019-10-23] MEDS: METOPROLOL SUCCINATE 50 MG TAB XL PO SCH ×2 (08:00→16:01)
[2019-10-23] MEDS: POTASSIUM CHLORIDE 20 MEQ TAB CR PO SCH ×2 (08:00→13:15)
[2019-10-23] MEDS: AMIODARONE HCL 200 MG TAB PO SCH ×2 (08:00→16:01)
[2019-10-23] MEDS: MUPIROCIN 2% OINT 22 GM TUBE TOP SCH ×2 (08:00→20:46)
--- NOTE | 2019-10-23 09:00 | NUR ---
Applied warm compress to left hand were IV infiltrated. Elevated arm at this time. Site still swollen and red. Will continue to follow.
--- NOTE | 2019-10-23 11:22 | Progress Note ---
DATE: 10/23/2019 Today, the patient is doing well. He is complaining of some cramps. He still has pitting edema. Urine is clear. Good excellent output. Penis is normal. Both testicles are normal. He has recurrent hydrocele on the left side, which has gone down since the fluid has been managed. The patient will be undergoing a cardiac cath according to him tomorrow. After that, he has decided that if his atrial fibrillation still continues that he wants to have an ablation. The catheter will need to stay in probably for the next 4-8 weeks depending on treatment options that the patient has. MD MAHENDRA Cabrera/JER /[id number]
[2019-10-23] MEDS ORDERED: DILTIAZEM HCL ER 90MG CAPSULE PO SCH (11:45)
[2019-10-23] MEDS: DILTIAZEM HCL ER 120 MG CAP PO SCH (13:14)
[2019-10-23] MEDS ORDERED: FUROSEMIDE INJ 10 MG/ML 4 ML VIAL IV SCH (14:00)
--- NOTE | 2019-10-23 16:00 | NUR ---
Applied warm compress to site, hand elevated. Site still swollen. Will continue to monitor.
--- NOTE | 2019-10-23 19:14 | NUR ---
Bedside shift report given to oncoming nurse. Patient is resting in bed. No acute distress noted. Call light within reach. Bed in the lowest position.
--- NOTE | 2019-10-23 19:15 | NUR ---
patient received awake, alert, lying quietly in bed. no c/o pain noted. iv heparin continues to infuse without difficulty. logan catheter draining to bsd. pm assessment complete. patient instructed to call for assistance when needed.
--- NOTE | 2019-10-23 20:49 | Progress Note ---
DATE: 10/23/2019 Cardiology Progress Note SUBJECTIVE: The patient denies chest pain or shortness of breath. He reports he felt tired today. OBJECTIVE: VITAL SIGNS: Temperature 98 degrees, pulse 123, respiratory rate 20, blood pressure 115/72, and oxygen saturation 99%. GENERAL: Awake and alert, in no acute distress. LUNGS: Clear to auscultation bilaterally. No wheezes or crackles. CARDIOVASCULAR: Tachycardic, irregularly irregular. No murmur. Normal S1 and S2. ABDOMEN: Soft and nontender. EXTREMITIES: 2+ pitting edema. CARDIAC MEDICATIONS: Metoprolol succinate 150 mg p.o. b.i.d., amiodarone 200 mg p.o. b.i.d., furosemide 40 IV q.8 hours, diltiazem 120 mg p.o. daily, digoxin 0.25 mg p.o. daily, aspirin 81 mg p.o. daily, and heparin drip. LABORATORY DATA: Sodium 141, potassium 4.2, chloride 96, CO2 36, BUN 16, and creatinine 1.4. Telemetry was personally reviewed and interpreted, revealing atrial fibrillation with rapid ventricular response. IMPRESSION: 1. Atrial fibrillation with rapid ventricular response. 2. Acute systolic heart failure. 3. Diabetes mellitus. 4. Hypothyroidism. 5. Benign prostatic hyperplasia. 6. Acute kidney injury. RECOMMENDATIONS: KARLEY cardioversion was performed with cardioversion to normal sinus rhythm, however, the patient did not maintain sinus rhythm. He converted back into atrial fibrillation by the following day. Continue amiodarone at current dose. Continue metoprolol and digoxin. We will start diltiazem. Continue heparin for CVA prophylaxis. Plan to evaluate coronary anatomy tomorrow. N.p.o. after midnight. Once his heart rate is controlled, he will need to be referred to EP as an outpatient for PVI. Thank you for this consult. We will continue to follow. Tami Miramontes MD ABS/MODL /[id number]
[2019-10-24] VITALS (15 sets, daily range): BP systolic 97–139; BP diastolic 53–87
[2019-10-24] MEDS: HEPARIN 25,000 UNIT 1,200 UNIT in DEXTROSE 5% 250ML 250 ML IV SCH (00:53)
[2019-10-24] MEDS: LEVOTHYROXINE SODIUM 75 MCG TAB PO SCH (05:15)
--- NOTE | 2019-10-24 06:40 | NUR ---
Received bedside shift report from off going nurse. Patient is resting in bed, no acute distress noted. Call light within reach. Bed in the lowest position.
[2019-10-24 06:59] LABS: ANION GAP 12.2 mmol/L (8-16); CALCIUM 9.5 mg/dL (8.4-10.2); CREATININE, SERUM 1.27 mg/dL (0.72-1.25); POTASSIUM 4.2 mmol/L (3.5-5.1)
[2019-10-24] MEDS: INSULIN REGULAR, HUMAN 100 UNIT/1 ML 3ML VIAL SQ SCH ×4 (07:30→21:00)
[2019-10-24] MEDS ORDERED: MIDAZOLAM HCL 2 MG/2 ML VIAL ONE ×2 (08:42→10:05)
[2019-10-24] MEDS ORDERED: VERAPAMIL HCL 2.5 MG/ML 2 ML VIAL ONE (08:42)
[2019-10-24] MEDS ORDERED: LIDOCAINE HCL 2% LOCAL 20 ML VIAL ONE (08:43)
[2019-10-24] MEDS: AMIODARONE HCL 200 MG TAB PO SCH ×2 (08:43→16:20)
[2019-10-24] MEDS ORDERED: IOPAMIDOL 370 MG/ML 200 ML INFUS..BTL INJ ONE (08:43)
[2019-10-24] MEDS ORDERED: HEPARIN SOD/SOD CHLORIDE 2,000 ML ONE (08:43)
[2019-10-24] MEDS ORDERED: FENTANYL CITRATE/PF 100MCG/2 ML INJ ONE (08:43)
[2019-10-24] MEDS: FAMOTIDINE 20 MG TAB PO SCH ×2 (08:43→21:41)
[2019-10-24] MEDS: DIGOXIN 0.25 MG TAB PO SCH (08:43)
[2019-10-24] MEDS: METOPROLOL SUCCINATE 50 MG TAB XL PO SCH ×2 (08:43→16:21)
[2019-10-24] MEDS: DILTIAZEM HCL ER 120 MG CAP PO SCH (08:43)
[2019-10-24] MEDS: MUPIROCIN 2% OINT 22 GM TUBE TOP SCH ×2 (08:44→21:00)
[2019-10-24] MEDS ORDERED: SODIUM CHLORIDE 0.9% 1000ML 1,000 ML ONE (08:44)
--- NOTE | 2019-10-24 08:49 | NUR ---
PATIENT OFF UNIT FOR PROCEDURE.
[2019-10-24] MEDS: ASPIRIN 81 MG ENTERIC COATED PO SCH (09:00)
--- NOTE | 2019-10-24 09:26 | NUR ---
0926a Received pt to room #9, Identifierx2 bedside report received from Bruce CACNINO. Alert oriented and appropriate, PERRLA, respirations even and unlabored to room air. Pulses x4 extremities equal and strong. Pedal pulses PT/DP X4.Cap fill brisk < 3 sec. Tr band down at 1215 then return to floor care. Skin warm and dry integrity appears D/I IV 20g to left ac presents healthy w/o s/s of infiltration or complaint. Abdomen soft and supple. pt offered toileting, denies need to urinate or defecate. No personal affects with patient. Family at bedside Pt and family verbalize understanding POC. Currently with complaints of pain to left hand elevated on pillowx1,red and tender Dressing change with small white area. Reported to floor staff. Wound nurse did report standard phlebitis assessment and report to which floor staff EMIL Anderson reported to nurse practitioner Martha CANCINO,which ordered assessment from wound team per Monica Cancino.Nurse said is placing order. marjorie Addendum: 10/24/19 at 1219 by Yamel Plaza RN [id number] repeated entry please dis regard marjorie
--- NOTE | 2019-10-24 09:26 | NUR ---
0926a Received pt to room 10,bedside report received from Sepideh. Alert oriented and appropriate, PERRLA, respirations even and unlabored to room air. Pulses x4 extremeties equal and strong. Pedal pulses PT/DP X4. Cap fill brisk < 3 sec. Rt Tr band down ok at 1215 Can eat at 12n Post EKG place in computer. Stentx1 Teaching given to family. Skin warm and dry integrity appears D/I. IV 20g to left AC , presents healthy w/o s/s of infiltration or complaint. Abdomen soft and supple. pt offered toileting, denies need to urinate or defecate. No personal affects with patient. Family Monica [phone]. Pt and family verbalizes understanding of POC. Currently w/o complaint of pain or need. ds/rn
[2019-10-24] MEDS ORDERED: CLOPIDOGREL BISULFATE 75 MG TAB ONE (10:23)
[2019-10-24] MEDS ORDERED: ASPIRIN 325 MG TAB ONE (10:23)
--- NOTE | 2019-10-24 11:15 | NUR ---
1111 Pt has complaints pain to left hand old iv site place Redness,swollen and tender. Elevated and ice applied call floor nurse to give status up date ds/rn
--- NOTE | 2019-10-24 11:30 | NUR ---
1490 Spoke and updated Nurse Monica STEIN from pt floor room #292 regarding old iv site. to left hand. Pt has minimal movement to left hand site dressing changed some white apparent slough area. Red and tender. Elevation and ice bag applied Reported floor staff they will f/o with MD.TR band comes down at 1245p May eat at 12n EKG ordered. ds/rn
--- NOTE | 2019-10-24 12:15 | NUR ---
1215RADIAL Compression removal: Initial Cuff volume 13 cc 1215 -3 cc Removed No hematoma/bleeding noted with normal neurovascular function. 1230 -5 cc Removed No hematoma/ bleeding noted with normal neurovascular function. 1245 -5cc Removed No hematoma/bleeding noted with normal neurovascular function. Air removal completed. Stasis achieved sterile 2x2,Tegaderm, Coban dressing No hematoma, bleeding noted with normal neurovascular function. Wrist splint in place. Pt instructed on POC. Ds/Rn
--- NOTE | 2019-10-24 12:34 | NUR ---
1245pReport phone to floor staff Monica RN.Pt stable vs rt tr band off with stasis at 1245p Normal neurovascular function. Splint reminder in place and teaching to given. Will remove with am shower. Pt had stent x1 Ok to eat now. Left pt in room with Rn at bedside call light at bedside Bed in low position Face to Face report with nurse Brannon Aggarwal Practitioner regarding left hand To remain elevated with ice packs. Monitor remain atrial fib flutter. EKG done post procedure.Denies CP or SOB. Has small snack at bedside. ds/rn
--- NOTE | 2019-10-24 12:42 | NUR ---
Patient back to unit at this time, he is in stable condition. Ice bag applied to left hand where redness noted from IV infiltration. Will continue to monitor.
--- NOTE | 2019-10-24 12:42 | NUR ---
Patient back to room at this time.
--- NOTE | 2019-10-24 12:46 | NUR ---
WOUND CARE CONSULT FOR 1 DAY POST INFILTRATED IV SITE REPORTED BY NURSE SITE IS SWOLLEN AND RED AND DRAINING MY RECOMMENDATIONS ARE IN ALIGNMENT WITH CURRENT REPORTED TREATMENTS OF WARM COMPRESS AND ARM ELEVATION PLEASE RECONSULT WOUND CARE IF ANY FURTHER ASSISTANCE IS NEEDED WOUND CARE WILL FOLLOW UP WITH PATIENT CONDITION Sunday10/27/19 Addendum: 10/24/19 at 1252 by Randall Boykin RN Amended: Links added.
--- NOTE | 2019-10-24 13:00 | NUR ---
Paged Dr. Kwok in regards to heparin, asked MD if he wanted it restarted. Per MD, ask Dr. Miramontes if needed to be restarted. Paged Dr. Miramontes at this time, no answer, LVM. Awaiting for call back.
--- NOTE | 2019-10-24 13:30 | NUR ---
Per Dr. Miramontes re-start heparin 2 hours after TR band pulled. TR band pulled at labourers at 1230.
--- NOTE | 2019-10-24 13:52 | Progress Note ---
DATE: 10/24/2019 Cardiology Progress Note SUBJECTIVE: The patient denies chest pain or shortness of breath. He underwent cardiac catheterization today with PCI of the OM. OBJECTIVE: VITAL SIGNS: Temperature 99 degrees, pulse 126, respiratory rate 18, blood pressure 116/57, and oxygen saturation 94% on room air. GENERAL: Awake, alert, in no acute distress. LUNGS: Clear to auscultation bilaterally. No wheezes or crackles. CARDIOVASCULAR: tachycardic, irregularly irregular. No murmur. Normal S1 and S2. ABDOMEN: Soft and nontender. EXTREMITIES: 1+ pitting edema. CARDIAC MEDICATIONS: 1. Diltiazem 120 mg p.o. daily. 2. Digoxin 0.25 mg p.o. daily. 3. Metoprolol succinate 150 mg p.o. b.i.d. 4. Amiodarone 200 mg p.o. b.i.d. 5. Heparin drip. LABORATORY DATA: Sodium 137, potassium 4.2, chloride 98, CO2 of 31, BUN 16, and creatinine 1.27. Telemetry was personally reviewed and interpreted, revealing atrial fibrillation/flutter with rapid ventricular response. IMPRESSION: 1. Atrial fibrillation/flutter with rapid ventricular response. 2. Acute systolic heart failure. 3. Diabetes mellitus. 4. Hypothyroidism. 5. Benign prostatic hyperplasia. 6. Acute kidney injury. 7. Coronary artery disease, status post obtuse marginal percutaneous coronary intervention.. RECOMMENDATIONS: KARLEY cardioversion was performed with cardioversion to normal sinus rhythm. However, patient did not maintain sinus rhythm. He converted back to atrial fibrillation by the following day. Continue amiodarone at current dose. Continue metoprolol and digoxin. Diltiazem has been started with a slight improvement in heart rate control. If blood pressure permits, we will further increase. Continue heparin for CVA prophylaxis. Once the patient's heart rate is controlled, he may be discharged home for outpatient referral to EP for PVI and atrial flutter ablation. Thank you for this consult. We will continue to follow. Tami Miramontes MD ABS/MODL /[id number]
--- NOTE | 2019-10-24 16:10 | NUR ---
Keep applying ice compress, hand looks better, minimal redness noted. Patient able to move fingers more.
--- NOTE | 2019-10-24 19:00 | NUR ---
Visited pt in room during nursing rounds. Patient alert and oriented x3. Pt ambulatory in room prn. On heparin drip at 11ml/hr per A-fib protocol. S/P heart cath via right wrist. Right wrist on a splint with dressing appearing clean, dry and intact. Pt states he feels fine. Sinus tachycardia (HR 120s) on telemetry at this time. Call chawla within reach.
--- NOTE | 2019-10-24 19:02 | NUR ---
Mireles catheter in place for urinary retention.
--- NOTE | 2019-10-24 19:15 | NUR ---
Bedside shift report given to oncoming nurse. Patient is in stable condition resting in bed, no acute distress noted. at bedside. Call light within reach. Bed in the lowest position.
--- NOTE | 2019-10-24 21:40 | NUR ---
Informed pt that latest PTT level tonight was 63.9 and is therapeutic. Current Heparin drip rate still at 11ml/hr. Informed pt next PTT will be drawn at 0230. Pt pleaded not to be drawn at that time because he wants to rest and instead requested to be drawn around 0500 tomorrow. Will pass on information to dre STEIN.
[2019-10-25] VITALS: BP 125/79
[2019-10-25 04:00] VITALS: BP 123/81
[2019-10-25] MEDS: HEPARIN 25,000 UNIT 1,200 UNIT in DEXTROSE 5% 250ML 250 ML IV SCH (04:35)
[2019-10-25] MEDS: LEVOTHYROXINE SODIUM 75 MCG TAB PO SCH (06:24)
[2019-10-25 06:30] LABS: BASOPHILS % 0.4 % (0.0-1.0); EOSINOPHILS # (AUTO) 0.1 (0.0-0.4); EOSINOPHILS % 0.8 % (0.0-6.0); HEMATOCRIT 49.2 % (38.2-49.6); HEMOGLOBIN 15.9 g/dL (14.0-18.0); LYMPHOCYTES # (AUTO) 1.6 (1.0-3.2); LYMPHOCYTES % 21.4 % (18.0-39.1); MEAN CORPUSCULAR HEMOGLOBIN 31.2 pg (28-32); MEAN CORPUSCULAR HGB CONC 32.3 g/dL (31-35); MEAN CORPUSCULAR VOLUME 96.5 fL (81-99); MONOCYTES # (AUTO) 1.1 (0.2-0.8); MONOCYTES % 14.5 % (4.4-11.3); NEUTROPHILS # (AUTO) 4.5 (2.1-6.9); NEUTROPHILS % 62.8 % (38.7-80.0); PLATELET COUNT 169 x10e3/uL (140-360); RED CELL DISTRIBUTION WIDTH 14.2 % (11.7-14.4)
[2019-10-25 06:40] LABS: INR 1.02
--- NOTE | 2019-10-25 06:40 | NUR ---
Bedside shift report received from off going nurse. Patient is in stable condition. He is resting in bed, no acute distress noted. at bedside. Call light within reach. Bed in the lowest position.
[2019-10-25 06:41] LABS: PARTIAL THROMBOPLASTIN TIME 62.7 seconds (23.8-35.5)
[2019-10-25 06:48] LABS: ANION GAP 8.3 mmol/L (8-16); BLOOD UREA NITROGEN 14 mg/dL (7-26); BUN/CREATININE RATIO 14 (6-25); CALCIUM 9.2 mg/dL (8.4-10.2); CARBON DIOXIDE 30 mmol/L (22-29); CHLORIDE 101 mmol/L (98-107); CREATININE, SERUM 1.01 mg/dL (0.72-1.25); EST GLOMERULAR FILTRATION RATE > 60 ML/MIN (60-); GLUCOSE 110 mg/dL (74-118); POTASSIUM 4.3 mmol/L (3.5-5.1); SODIUM 135 mmol/L (136-145)
[2019-10-25] MEDS: INSULIN REGULAR, HUMAN 100 UNIT/1 ML 3ML VIAL SQ SCH ×3 (07:30→16:19)
[2019-10-25 08:02] VITALS: BP 112/73
[2019-10-25] MEDS: MUPIROCIN 2% OINT 22 GM TUBE TOP SCH (08:10)
[2019-10-25] MEDS ORDERED: CLOPIDOGREL BISULFATE 75 MG TAB PO SCH (09:00)
[2019-10-25] MEDS ORDERED: DILTIAZEM HCL 180 MG CAP ER PO SCH (09:00)
[2019-10-25] MEDS: AMIODARONE HCL 200 MG TAB PO SCH ×2 (09:02→16:24)
[2019-10-25] MEDS: FAMOTIDINE 20 MG TAB PO SCH (09:02)
[2019-10-25] MEDS: ASPIRIN 81 MG ENTERIC COATED PO SCH (09:02)
[2019-10-25] MEDS: APIXABAN 5 MG TABLET PO SCH ×2 (09:02→16:24)
[2019-10-25] MEDS: DIGOXIN 0.25 MG TAB PO SCH (09:02)
[2019-10-25] MEDS: METOPROLOL SUCCINATE 50 MG TAB XL PO SCH ×2 (09:02→16:25)
[2019-10-25 12:07] VITALS: BP 123/80
[2019-10-25] MEDS ORDERED: ASPIRIN81 MG PO (15:26)
--- NOTE | 2019-10-25 15:30 | NUR ---
DR. SHIPLEY CLEARED PATIENT FOR DISCHARGE AT THIS TIME.
[2019-10-25] MEDS ORDERED: TOPROL XL50 MG PO (16:04)
[2019-10-25] MEDS ORDERED: ACETAMINOPHEN325 M1 PO (16:04)
[2019-10-25] MEDS ORDERED: ELIQUIS5 MG PO (16:04)
[2019-10-25] MEDS ORDERED: FUROSEMIDE40 MG PO (16:04)
[2019-10-25] MEDS ORDERED: POTASSIUM CHLO20 ME1 PO (16:04)
[2019-10-25] MEDS ORDERED: LANOXIN250 MCG PO (16:04)
[2019-10-25] MEDS ORDERED: AMIODARONE HCL200 MG PO (16:04)
[2019-10-25] MEDS ORDERED: DILTIAZEM 24HR180 M1 PO (16:04)
[2019-10-25] MEDS ORDERED: PLAVIX75 MG PO (16:04)
[2019-10-25 16:23] VITALS: BP 156/76
--- NOTE | 2019-10-25 17:42 | NUR ---
Received discharge order from STEPH[facility]IE [facility]. Patient is in stable condition. IV line to left antecubital discontinued with tip intact, pressure applied to site, no bleeding noted. Discharge teaching provided to patient and , they both verbalized understanding. Discharge folder with paperwork and prescriptions on hand. Personal items on hand. Patient accompanied to private auto by staff.
--- NOTE | 2019-10-25 19:48 | Progress Note ---
DATE: 10/25/2019 Cardiology Progress Note SUBJECTIVE: The patient denies chest pain or shortness of breath. He is eager to go home. OBJECTIVE: VITAL SIGNS: Temperature 98 degrees, pulse 147, respiratory rate 18, blood pressure 123/80, oxygen saturation 99% on 2 L nasal cannula. GENERAL: Morbidly obese gentleman in no acute distress, awake and alert. LUNGS: Clear to auscultation bilaterally. No wheezes or crackles. CARDIOVASCULAR: Tachycardic, irregularly irregular. No murmur. Normal S1, S2. ABDOMEN: Soft, nontender. EXTREMITIES: 1+ pitting edema. CARDIAC MEDICATIONS: Apixaban 5 mg p.o. b.i.d., Plavix 75 mg p.o. daily, diltiazem 180 mg p.o. daily, digoxin 0.25 mg daily, metoprolol succinate 150 mg p.o. b.i.d., aspirin 81 mg p.o. daily, amiodarone 200 mg p.o. b.i.d., levothyroxine 150 mcg p.o. daily. LABORATORY DATA: WBC 7.24, hemoglobin 15.9, hematocrit 49.2, platelets 169. Sodium 135, potassium 4.3, chloride 101, CO2 30, BUN 14, and creatinine 1.01. TELEMETRY: Personally reviewed and interpreted revealing rate controlled atrial fibrillation/flutter with episodes of rapid ventricular response. IMPRESSION: 1. Atrial fibrillation/flutter. 2. Acute systolic heart failure. 3. Diabetes mellitus. 4. Hypothyroidism. 5. Benign prostatic hyperplasia. 6. Acute kidney injury, improved. 7. Coronary artery disease, status post OM PCI. RECOMMENDATIONS: KARLEY cardioversion was performed with return to normal sinus rhythm, however, the patient did not maintain sinus rhythm and converted back to atrial fibrillation by the following day. Continue diltiazem, metoprolol, amiodarone and digoxin. His rate is acceptable. The patient ambulated down the hallway without difficulty and highest rate was only in the 120s. The patient can be discharged home with close followup in the clinic. He is to be referred to electrophysiology as an outpatient for PVI and atrial flutter ablation. Once his ablation is complete, he will need to remain on Eliquis for 3 months prior to any procedures. At that point, his cardiac medications will need to be adjusted so that he may be placed on optimal heart failure therapy. Start JUSTEN/ARB as an outpatient if renal function is stable given recent acute kidney injury. He will need outpatient nuclear stress test to evaluate for ischemia in the LAD territory. In addition, he will need repeat echocardiogram at 3 months to assess need for ICD. Thank you for this consult. We will continue to follow. Tami Miramontes MD ABS/MODL /[id number]
--- NOTE | 2019-10-26 04:19 | Discharge Summary ---
CONSULTING PHYSICIANS: 1. Jonas Kwok MD, with Cardiology. 2. Trevon Zaragoza MD, with Pulmonology. 3. James Parker MD, with Urology. PRIMARY CARE PHYSICIAN: Dr. Hill. PERTINENT HISTORY AND PHYSICAL FINDINGS: Chief complaint, shortness of breath, bilateral lower extremity edema, and palpitations. HISTORY OF PRESENT ILLNESS: This is a 64-year-old male with a history of diabetes mellitus, hypertension, BPH, sleep apnea, who got admitted with complaints of shortness of breath, bilateral lower extremity edema, and palpitations. The patient reported having scrotal swelling and lower extremity edema for the past 3 weeks. He denied any fever or chills. His EKG showed atrial fibrillation with heart rate of 140. He was placed on amiodarone drip and heparin drip and monitored closely in ICU. PAST MEDICAL HISTORY: Includes BPH, type 2 diabetes mellitus, hypertension, obstructive sleep apnea on CPAP, COPD, hypothyroidism as well. PAST SURGICAL HISTORY: Includes hydrocele surgery, acromionectomy. FAMILY HISTORY: Heart problems. Father required ablation and his mother with coronary artery disease, had a stent insertion. SOCIAL HISTORY: He is a lifelong smoker and continues to smoke. He is . He smokes cigars a few times a week. He does drink, but denies any illicit. ADMITTING DIAGNOSES: Include: 1. Atrial fibrillation with rapid ventricular rate. 2. Acute congestive heart failure. 3. Hypertension. 4. Type 2 diabetes mellitus. 5. Hyperlipidemia due to type 2 diabetes mellitus. 6. Obstructive sleep apnea with the use of CPAP. 7. Chronic obstructive pulmonary disease. 8. Smoking cessation. 9. Urinary retention. DISCHARGE DIAGNOSES: As follows: 1. Atrial fibrillation with rapid ventricular rate, status post transesophageal echocardiogram with cardioversion on 10/21/2019. 2. Acute systolic congestive heart failure with ejection fraction of 25% to 30%. 3. Controlled hypertension with acute systolic congestive heart failure. 4. Controlled type 2 diabetes mellitus. 5. Hyperlipidemia due to type 2 diabetes mellitus. 6. Coronary artery disease, status post obtuse marginal PCI on 10/24/2019. 7. Acute kidney injury with creatinine 1.4. 8. Chronic obstructive pulmonary disease without exacerbation. 9. Urinary retention, BPH with indwelling Mireles catheter. 10. Obstructive sleep apnea and use of CPAP at night. 11. Hypothyroidism. LABORATORY DATA: On admission, WBC is 10.34, hemoglobin 15.6, hematocrit 48.3, platelets 246. Potassium 4.4, BUN 22, creatinine 1.25, estimated GFR 59. AST 39, alkaline phosphatase 32, creatine kinase 308. Troponin I 0.069. Further cardiac biomarkers were negative x3 sets. B-type natriuretic peptide 239.7, TSH 1.123. Chest x-ray on October 15 showed a right basilar opacity, which could be due to effusion and/or atelectasis. Upon evaluation in the emergency room, he was found to be in atrial fibrillation with RVR and amiodarone protocol along with heparin drip for CVA prophylaxis was started. The patient was put on Lasix given his volume overload. He was successfully cardioverted to normal sinus rhythm with heart rate within normal limits and there are plans for Eliquis for minimal 4 weeks post discharge; however, the patient converted from normal sinus rhythm back in atrial fibrillation at midnight on October 20 with a heart rate of 110-118. Metoprolol was increased by Dr. Miramontes from 100 mg p.o. b.i.d. to 150 mg b.i.d. He remained asymptomatic. He was monitored for chest pain. Did not have chest pain. He subsequently underwent PCI with left heart cath into the obtuse marginal. Heart rate is better controlled. Per Dr. Miramontes, his heart rate upper 90s into 120. Documented heart rates this morning since midnight 125, 124, 125, 125, 127. He was off Lasix for a bit with elevated creatinine. His creatinine went from 1.4 to 1.27 to 1.01 and he will be discharged on Lasix 40 mg p.o. daily. I will start potassium chloride 20 mEq every other day to avoid hypokalemia. On November 05, Dr. Parker saw the patient for urinary retention. He will go home with his coude catheter. He is to follow up with Dr. Parker after his heart condition is improved. OTHER DISCHARGE PRESCRIPTIONS: Include Lasix 40 mg p.o. daily, amiodarone 200 mg p.o. b.i.d., Eliquis 5 mg p.o. b.i.d., clopidogrel or Plavix 75 mg p.o. daily, digoxin 0.25 mg p.o. daily, diltiazem ER 180 mg daily, metoprolol succinate 150 mg p.o. b.i.d. DIET: Continue ADA diet. ACTIVITY: As tolerated. FOLLOWUP: The patient is to follow up with Cardiology on Sunday. Follow up with his PCP in 1-2 weeks. Follow up with Dr. Parker, Dr. Trevon Zaragoza with Pulmonology as directed. Dictated by Brannon Aggarwal, STEPHANIE MD NICANOR LewisP/MODL /[id number]
--- NOTE | 2019-12-04 10:04 | Operative Report ---
DATE OF PROCEDURE: SURGEON: Jonas Kwok MD INDICATION FOR PROCEDURE: Chest pain, [id number] CO. PREPROCEDURE ASSESSMENT: The risks, benefits, and alternatives of treatment were explained to the patient prior to the procedure. The patient was deemed to be an appropriate candidate for moderate sedation. Informed consent was obtained as documented in the medical record. Please see nursing notes for medications administered throughout the procedure. PROCEDURES PERFORMED: 1. Coronary angiography, right radial approach. 2. Left heart catheterization. 3. PCI to the OM with drug-eluting stent x1. PROCEDURE DETAILS: The patient was brought to the cardiac catheterization laboratory in a fasting state. Right wrist was prepped and draped in a sterile fashion. A 6-Croatian Slender sheath was inserted in the right radial artery using modified Seldinger technique. Coronary angiography was performed using a 5-Croatian PureWRX radial catheter to engage both the left and right coronary systems. Multiple orthogonal views were taken of each coronary artery. This demonstrated a 90% stenosis of OM1 in the proximal to midportion. After discussing this with the patient, we decided to proceed with PCI of the OM. XB 3.0 guiding catheter was used to provide adequate support. Lesion was wired using a run-through wire. The lesion was predilated using an Emerge 2.0 x 15 mm balloon followed by stenting with a 2.5 x 20 mm Synergy drug-eluting stent. This resulted in excellent angiographic result without any significant dissection, thrombus, or spasm. ACT near 300 was maintained throughout the procedure using IV boluses of heparin. Aspirin and Plavix were given at the end of the case in loading doses. The patient tolerated the procedure well. Access site was closed using a TR band device. All catheters were removed over a wire. There were no immediate complications. SIGNIFICANT FINDINGS: 1. Left main large vessel: No significant CAD. 2. LAD: Large vessel goes to the apex, one large diagonal branch, 70-80% ostial stenosis of diagonal, 50% stenosis of mid LAD, 40% plaque in the proximal LAD. 3. Left circumflex: Large nondominant circumflex with 90% stenosis of OM1, mild plaquing otherwise. 4. RCA: Dominant RCA with 20% plaque mid and 50% plaque in the proximal PDA. 5. Left heart catheterization showed LVEDP of 17 and no gradient across the aortic valve. LV angiography showed LV ejection fraction estimated to be 60%. GRAFTS AND IMPLANTS: Drug-eluting stent x1. SPECIMENS REMOVED: None. ESTIMATED BLOOD LOSS: 10 mL. COMPLICATIONS: None. FINAL RECOMMENDATIONS: 1. Aspirin and Plavix for at least 1 year. 2. Follow up in clinic 2 weeks post procedure. MD IAN Luz/JER /[id number]
== END 2019-10-25 17:43 | disposition home or self-care (01) | DRG 246 ==
LOC: ER 17:50 → ERHOLD 22:09 → ICU 23:00 → MED/SURG3 10-21 17:50
PROVIDERS: ADMIT Internal Medicine; ATTEND Internal Medicine
PROC: 5A2204Z Restoration of Cardiac Rhythm, Single (ICD-10-PCS; 2019-10-21)
PROC: 027034Z Dilation of Coronary Artery, One Artery with Drug-eluting Intraluminal Device, Percutaneous Approach (ICD-10-PCS; principal; 2019-10-24)
PROC: 4A023N7 Measurement of Cardiac Sampling and Pressure, Left Heart, Percutaneous Approach (ICD-10-PCS; 2019-10-24)
PROC: B2111ZZ Fluoroscopy of Multiple Coronary Arteries using Low Osmolar Contrast (ICD-10-PCS; 2019-10-24)
DX: I48.0 Paroxysmal atrial fibrillation (principal); I50.23 Acute on chronic systolic (congestive) heart failure; N17.9 Acute kidney failure, unspecified; Z68.42 Body mass index [BMI] 45.0-49.9, adult; G47.33 Obstructive sleep apnea (adult) (pediatric); E03.9 Hypothyroidism, unspecified; J44.9 Chronic obstructive pulmonary disease, unspecified; R60.0 Localized edema; I11.0 Hypertensive heart disease with heart failure; N40.1 Benign prostatic hyperplasia with lower urinary tract symptoms; R33.8 Other retention of urine; I25.10 Atherosclerotic heart disease of native coronary artery without angina pectoris; N50.89 Other specified disorders of the male genital organs; E11.69 Type 2 diabetes mellitus with other specified complication; E78.49 Other hyperlipidemia; E66.01 Morbid (severe) obesity due to excess calories
CPT/HCPCS: 36415; 51700; 71045; 80048; 80053; 80061; 82550; 82553; 82948; 83735; 83880; 84100; 84443; 84484; 85025; 85610; 85730; 92928; 93005; 93306; 93312; 93458; 96361; 96372; 99152; 99153; 99251; 99284; C1725; C1874; C1887; J1160; J1644; J1817; J1940; J2001; J2250; J3010; J7030; Q9967

== ENCOUNTER 2020-03-23 05:28 | Observation (INO) | payer OTHER ==
[2020-03-18 09:53] LABS: BASOPHILS % 0.4 % (0.0-1.0); EOSINOPHILS # (AUTO) 0.2 (0.0-0.4); EOSINOPHILS % 2.6 % (0.0-6.0); HEMATOCRIT 43.3 % (38.2-49.6); LYMPHOCYTES # (AUTO) 2.5 (1.0-3.2); LYMPHOCYTES % 32.9 % (18.0-39.1); MEAN CORPUSCULAR HGB CONC 32.3 g/dL (31-35); MONOCYTES # (AUTO) 0.8 (0.2-0.8); MONOCYTES % 9.8 % (4.4-11.3); NEUTROPHILS # (AUTO) 4.1 (2.1-6.9); NEUTROPHILS % 53.9 % (38.7-80.0); PLATELET COUNT 265 x10e3/uL (140-360); RED BLOOD COUNT 4.51 x10e6/uL (4.3-5.7); RED CELL DISTRIBUTION WIDTH 12.7 % (11.7-14.4)
--- NOTE | 2020-03-18 09:59 | Diagnostic Imaging Report ---
EXAM: CHEST 2 VIEWS DATE: 03/18/2020 9:30 AM INDICATION: Urinary retention COMPARISON: 10/19/2019 FINDINGS: The trachea is midline. The lungs are symmetrically expanded without evidence for large focal consolidation, pneumothorax, or significant pleural effusion. The cardiomediastinal silhouette is stable in appearance. The pulmonary vasculature is not engorged. No acute osseous abnormality is identified. The surrounding soft tissues are unremarkable. IMPRESSION: No acute cardiopulmonary process identified. Signed by: Dr. Uziel Vizcarra MD on 03/18/2020 9:55 AM
[2020-03-18 10:13] LABS: ALANINE AMINOTRANSFERASE 43 IU/L (0-55); ALBUMIN 4.1 g/dL (3.5-5.0); ALBUMIN/GLOBULIN RATIO 1.2 (0.8-2.0); ALKALINE PHOSPHATASE 27 IU/L (40-150); ANION GAP 15.2 mmol/L (8-16); BLOOD UREA NITROGEN 20 mg/dL (7-26); BUN/CREATININE RATIO 19 (6-25); CALCIUM 9.7 mg/dL (8.4-10.2); CARBON DIOXIDE 28 mmol/L (22-29); CHLORIDE 104 mmol/L (98-107); CREATININE, SERUM 1.08 mg/dL (0.72-1.25); EST GLOMERULAR FILTRATION RATE > 60 ML/MIN (60-); GLUCOSE 108 mg/dL (74-118); POTASSIUM 4.2 mmol/L (3.5-5.1); SODIUM 143 mmol/L (136-145)
[2020-03-23] VITALS (7 sets, daily range): BP systolic 115–129; BP diastolic 62–76
[~2020-03-23] VITALS: Ht 172.7 cm; Wt 108.9 kg
[~2020-03-23 05:28] MED LIST: ACETAMINOPHEN325 M1 PO; AMBIEN10 MG PO; AMIODARONE HCL200 MG PO; ARIMIDEX1 MG PO; ASPIRIN81 MG PO; CLOPIDOGREL75 MG PO; DILTIAZEM 24HR180 M1 PO; ELIQUIS5 MG PO; ENTRESTO 49 MG1 EACH PO; FARXIGA10 MG PO; FUROSEMIDE40 MG PO; LANOXIN250 MCG PO; LEVOTHYROXINE200 MCG PO; LEVOTHYROXINE75 MCG PO; LISINOPRIL-HCT1 EACH PO; MELOXICAM7.5 MG PO; PLAVIX75 MG PO; POTASSIUM CHLO20 ME1 PO; TADALAFIL5 MG PO; TESTOSTERO100 MG/1 M IM; TOPROL XL25 MG PO; TOPROL XL50 MG PO; TRULICITY1.5 MG/0.5 SQ
[2020-03-23] MEDS ORDERED: BENADRYL25 M1 PO (06:03)
[2020-03-23] MEDS ORDERED: CEFAZOLIN SOD 1 GM/NS 50ML 100 ML IV ONE (06:12)
[2020-03-23] MEDS ORDERED: B&O 60MG R/S 60 MG SUPP PR ONE (06:37)
--- OUTSIDE RECORDS SUMMARY | 2020-03-23 09:51 | XMS REPORT | Summary of Care ---
Author Author [facility] - Health Organization [facility] - Health Address Unknown Phone Unavailable Care Team Providers Care Scheme Technician Name Role Phone Eliseo Hill MD PCP Reason for Visit * Reason Comments Results Covid-19 Encounter Details Care Team Description Date [place] [address] [address] Results (Covid-19) 12/01/2019 Telephone [facility] Station, [address] [place] [address] Allergies No Known Allergiesdocumented as of this encounter (statuses as of 12/01/2019) Medications End Date Status Medication Sig Dispensed Refills Start Date Suspended metoprolol succinate 100 Take by 0 mg CSpX mouth. Suspended diltiazem XR (DILT-XR) Take 180 mg 0 180 mg 24 hr capsule by mouth daily. Suspended clopidogreL 75 mg tablet Take 75 mg by 0 mouth daily. Suspended furosemide 40 mg tablet Take 40 mg by 0 mouth daily. Suspended digoxin 250 mcg (0.25 mg) Take 250 mcg 0 tablet by mouth daily. Suspended amiodarone 200 mg tablet Take 200 mg 0 by mouth 2 (two) times daily. Suspended apixaban (ELIQUIS) 5 mg Take 5 mg by 0 tablet mouth 2 (two) times daily. Suspended Levothyroxine 150 mcg Take by 0 capsule mouth. Suspended potassium chloride 20 mEq Take by 0 tablet mouth every other day. Suspended coenzyme Q10 (COQ-10) 100 Take 100 mg 0 mg softgel by mouth. Suspended Lactobacillus acidophilus Take by 0 (PROBIOTIC ORAL) mouth. Suspended zolpidem (AMBIEN) 10 mg Take 10 mg by 0 tablet mouth as needed for Insomnia. Suspended dulaglutide (TRULICITY) inject under 0 1.5 mg/0.5 mL PnIj the skin weekly. documented as of this encounter (statuses as of 12/01/2019) Active Problems Problem Noted Date S/P ablation of atrial fibrillation 12/01/2019 Overview: PVI by Dr. Saldaña on 12/01/2019 documented as of this encounter (statuses as of 12/01/2019) Social History Date Tobacco Use Types Packs/Day Years Used Never Assessed Sex Assigned at Date Recorded Not on file Industry Job Start Date Occupation Not on file Not on file Not on file Travel End Travel History Travel Start No recent travel history available. documented as of this encounter Last Filed Vital Signs Not on filedocumented in this encounter Plan of Treatment Health Maintenance Due Date Last Done Comments HEPATITIS C (HCV) SCREEN 1955 DTaP,Tdap,and Td Vaccines 02/26/1968 (1 - Tdap) COLONOSCOPY 2007 Zoster Recombinant 2007 Vaccine (SHINGRIX) (1 of 2) INFLUENZA VACCINE (#1) 2019 PNEUMOCOCCAL 0-64 YEARS Aged Out No longer elig ible based COMBINED SERIES on patient's age to complete this topic documented as of this encounter Results Not on filedocumented in this encounter Insurance Type Payer Benefit Subscriber ID Effective Phone Address Plan / Dates Group POS AETNA AETNA [id number] 2017-P CHOICE POS resent II documented as of this encounter
--- OUTSIDE RECORDS SUMMARY | 2020-03-23 09:51 | XMS REPORT | Summary of Care ---
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 Role Phone Eliseo Hill MD PCP Reason for Visit * Reason Comments LAB Encounter Details Care Team Description Date [place] [address] [id number] Draw, [facility] Longstanding persistent atrial fibrillat ion (Primary Dx) 11/28/2019 [facility] Visit Laboratory, [address] [address] Allergies No Known Allergiesdocumented as of this encounter (statuses as of 11/28/2019) Medications No known medicationsdocumented as of this encounter (statuses as of 11/28/2019) Active Problems Not on filedocumented as of this encounter (statuses as of 11/28/2019) Social History Date Tobacco Use Types Packs/Day Years Used Never Assessed Sex Assigned at Date Recorded Not on file Industry Job Start Date Occupation Not on file Not on file Not on file Travel End Travel History Travel Start No recent travel history available. documented as of this encounter Last Filed Vital Signs Not on filedocumented in this encounter Plan of Treatment Care Team Description Date Type Specialty Cornelia Ashby RN [address] [place] [id number] 11/26/2019 Anesthesia Cardiac [place] [address] [address] 1, [facility] Cardiac Proc Room Anesthesia, Cl[facility] Ep Lab 12/01/2019 Hospital Cardiac Electrophys iology Encounter Date/Time Name Type Priority Associated Diag noses 11/28/2019 1:44 PM CDT CBC WITH DIFF LAB Routine Longstanding pe rsistent atrial fibrillation 11/28/2019 1:44 PM CDT BASIC METABOLIC PANEL LAB Routine [place] persistent (NA, K, CL, CO2, GLUCOSE, atrial fibrillation BUN, CREATININE, CA) 11/28/2019 1:44 PM CDT PROTHROMBIN TIME / INR LAB Routine [place] persistent atrial fibrillation 11/28/2019 1:44 PM CDT aPTT LAB Routine Longstanding pe rsistent atrial fibrillation 11/28/2019 1:44 PM CDT CBC WITH DIFFERENTIAL LAB Routine [place] persistent atrial fibrillation Order Schedule Name Type Priority Associated Diag noses Expected: 11/28/2019, Expires: 1 CBC WITH DIFF LAB Routine Longstanding pe rsistent atrial fibrillation Expected: 11/28/2019, Expires: 1 BASIC METABOLIC PANEL LAB Routine [place] persistent (NA, K, CL, CO2, GLUCOSE, atrial fibrillation BUN, CREATININE, CA) Expected: 11/28/2019, Expires: 1 PROTHROMBIN TIME / INR LAB Routine [place] persistent atrial fibrillation Expected: 11/28/2019, Expires: 1 aPTT LAB Routine Longstanding pe rsistent atrial fibrillation Expected: 11/28/2019, Expires: 1 Type and Screen - LAB Routine Longstanding persistent atrial fibrillation Health Maintenance Due Date Last Done Comments [...] Results Not on filedocumented in this encounter Visit Diagnoses Diagnosis Longstanding persistent atrial fibrilla tion - Primary documented in this encounter Insurance Type Payer Benefit Subscriber ID Effective Phone Address Plan / Dates Group POS AETNA AETNA [id number] 2017-P CHOICE POS resent II documented as of this encounter
--- OUTSIDE RECORDS SUMMARY | 2020-03-23 09:51 | XMS REPORT | Summary of Care ---
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, [place] [address] Allergies No Known Allergiesdocumented as of this encounter (statuses as of 05/20/2019) Medications End Date Status Medication Sig Dispensed Refills Start Date Active Levothyroxine Sodium Take by 0 (SYNTHROID OR) mouth. Active anastrozole (ARIMIDEX) 1 TAKE 1 TABLET 1 04/18 MG tablet BY MOUTH ONCE 9 A WEEK Active buPROPion (WELLBUTRIN) TAKE 1 TABLET 1 01 150 MG XL tablet BY MOUTH 9 EVERY DAY Active Dapagliflozin Propanediol Farxiga 10 mg 0 (FARXIGA) 10 MG TABS tablet Active lisinopril-hydrochlorothi lisinopril 20 0 azide (PRINZIDE, mg-hydrochlor ZESTORETIC) 20-12.5 MG othiazide per tablet 12.5 mg tablet Active zolpidem (AMBIEN) 10 MG TAKE 1 TABLET 0 tablet BY MOUTH AT 9 BEDTIME NEEDED Active levothyroxine (SYNTHROID) TAKE 1 TABLET 0 150 MCG tablet BY MOUTH 9 EVERY DAY Active Testosterone Cypionate Inject into 0 (DEPOTESTOTERONE the muscle CYPIONATE) 100 MG/ML once. injection 05/20/2019 Discontinued LISINOPRIL OR Take by 0 mouth. 05/20/2019 Discontinued Dapagliflozin-Metformin Take by 0 HCl (XIGDUO XR OR) mouth. 05/20/2019 Discontinued Montelukast Sodium Take by 0 (SINGULAIR OR) mouth. 05/20/2019 Discontinued albuterol (PROAIR HFA) ProAir HFA 90 0 108 (90 base) mcg/act mcg/actuation inhaler aerosol inhaler Inhale 2 puffs every 4-6 hours by inhalation route as needed. 05/20/2019 Discontinued benzonatate (TESSALON) benzonatate 0 200 mg capsule 200 mg capsule Take 1 capsule 3 times a day by oral route as needed. 05/20/2019 Discontinued fluticasone-salmeterol Advair Diskus 0 (ADVAIR DISKUS) 100-50 100 mcg-50 MCG/DOSE inhaler mcg/dose powder for inhalation documented as of this encounter (statuses as of 05/20/2019) Active Problems Problem Noted Date AC (acromioclavicular) arthritis 08/29/2016 documented as of this encounter (statuses as of 05/20/2019) Social History Date Tobacco Use Types Packs/Day Years Used Former Smoker 1 45 Smokeless Tobacco: Never Used Drinks/Week oz/Week Comments Alcohol Use Yes Sex Assigned at Date Recorded Not on file Industry Job Start Date Occupation Not on file Not on file Not on file Travel End Travel History Travel Start No recent travel history available. documented as of this encounter Last Filed Vital Signs Reading Time Taken Comments Vital Sign 133/82 05/20/2019 1:16 PM CDT Blood Pressure 109 05/20/2019 1:16 PM CDT Pulse - - Temperature - - Respiratory Rate - - Oxygen Saturation - - Inhaled Oxygen Concentration 115.7 kg (255 lb) 05/20/2019 1:16 PM CDT Weight 172.7 cm (5' 8") 05/20/2019 1:16 PM CDT Height 38.77 05/20/2019 1:16 PM CDT Body Mass Index documented in this encounter Progress Notes * Abdulaziz Weathers MD - 05/20/2019 1:10 PM CDT ASSESSMENT: 1. 2. Foot pain, acute, left-sided Plantar fibromatosis, bilateral The patient is a 64 year old man with a history of plantar fasciitis presenting with a 9 month history of multiple fixed, soft masses along the plantar surfaces of both feet with heel pain similar to previous plantar fasciitis and unremarka ble plain films, most likely consistent with fibromatosis of the plantar fascia. PLAN: Treatment Plan: Patient educated regarding stretching exercises to improve and h elp minimize pain from plantar fasciitis. Medications: None Weight Bearing Status: Patient is able to bear weight on affected extremity. PT / OT: None Follow-Up: 6 months if symptoms worsen or do not improve. Radiographs at Follow-Up: Left foot X-ray CHIEF COMPLAINT: Chief Complaint Patient presents with Foot Injury HISTORY OF PRESENT ILLNESS: Injury or Complaint: Mass on the bottom of his left foot and associated heel sudha n. Date of Injury or Duration of Condition: Onset approximately 9 months ago Mechanism: Patient denies injury Location: Left foot plantar surface Quality / Severity: Mild discomfort Aggravating / Alleviating Factors: Discomfort occurs when patient is walking bar efoot and the mass "catches" on the floor. Associated signs or symptoms: None Summary of Presentation: 64 year old man with history of plantar fasciitis prese nting with 9 months of a painless soft mass on the plantar surface of the left f oot without associated bruising, trauma, or redness. ALLERGIES: No Known Allergies CURRENT MEDICATIONS: Current Outpatient Medications: anastrozole (ARIMIDEX) 1 MG tablet, TAKE 1 TABLET BY MOUTH ONCE A WEEK, Dis p: , Rfl: 1 buPROPion (WELLBUTRIN) 150 MG XL tablet, TAKE 1 TABLET BY MOUTH EVERY DAY, Disp: , Rfl: 1 Dapagliflozin Propanediol (FARXIGA) 10 MG TABS, Farxiga 10 mg tablet, Disp: , Rfl: levothyroxine (SYNTHROID) 150 MCG tablet, TAKE 1 TABLET BY MOUTH EVERY DAY, Disp: , Rfl: 0 Levothyroxine Sodium (SYNTHROID OR), Take by mouth., Disp: , Rfl: lisinopril-hydrochlorothiazide (PRINZIDE, ZESTORETIC) 20-12.5 MG per tablet , lisinopril 20 mg-hydrochlorothiazide 12.5 mg tablet, Disp: , Rfl: Testosterone Cypionate (DEPOTESTOTERONE CYPIONATE) 100 MG/ML injection, Inj ect into the muscle once., Disp: , Rfl: zolpidem (AMBIEN) 10 MG tablet, TAKE 1 TABLET BY MOUTH AT BEDTIME NEEDED , Disp: , Rfl: 0 ACTIVE PROBLEMS: Patient Active Problem List Diagnosis AC (acromioclavicular) arthritis PAST MEDICAL HISTORY: PastMedicalHistory Past Medical History: Diagnosis Date Arthritis Diabetes (HCCode) Family history of prostate problems H/O seasonal allergies Hearing loss PAST SURGICAL HISTORY: PastSurgicalHistory Past Surgical History: Procedure Laterality Date HX HYDROCELE EXCISION HX SHOULDER SURGERY Left FAMILY HISTORY: FamilyHistory Family History Problem Relation Name Age of Onset Diabetes Mother High Cholesterol Mother Depression Father High Cholesterol Father SOCIAL HISTORY: Social History Socioeconomic History Marital status: Unknown Spouse name: Not on file Number of children: Not on file Years of education: Not on file Highest education level: Not on file Occupational History Not on file Social Needs Financial resource strain: Not on file Food insecurity: Worry: Not on file Inability: Not on file Transportation needs: Medical: Not on file Non-medical: Not on file Tobacco Use Smoking status: Former Smoker Packs/day: 1.00 Years: 45.00 Pack years: 45 Smokeless tobacco: Never Used Substance and Sexual Activity Alcohol use: Yes Drug use: Never Sexual activity: Not on file Lifestyle Physical activity: Days per week: Not on file Minutes per session: Not on file Stress: Not on file Relationships Social connections: Talks on phone: Not on file Gets together: Not on file Attends methodist service: Not on file Active member of club or organization: Not on file Attends meetings of clubs or organizations: Not on file Relationship status: Not on file Intimate partner violence: Fear of current or ex partner: Not on file Emotionally abused: Not on file Physically abused: Not on file Forced sexual activity: Not on file Other Topics Concerns: Not on file Social History Narrative Not on file REVIEW OF SYSTEMS: General: denies fever, chills, night sweats, nausea, or vomiting Neurologic: denies numbness, tingling, weakness, or problems with balance VITAL SIGNS: Vital Signs Height: 5' 8" (172.7 cm) Weight - Scale: 255 lb (115.7 kg) Pulse: 109 BP: 133/82 Patient Position: Sitting Cuff Size: regular BP Location: left arm PHYSICAL EXAM: Constitutional: awake, alert, follows commands, and in no acute distress Skin: intact without abrasions, rashes, or draining sinuses Neurologic: normal gait, normal strength and sensation in extremities Musculoskeletal: Left foot: 1x1cm round fixed, soft lesion along the plantar leydi face of the left foot just inferior to the first metatarsophalangeal joint. No t enderness to palpation of this area. No fluctuance. No erythema. There is a seco nd area of similar but smaller lesion just superior and medial to the first desc ribed lesion with associated tenderness to palpation. No pain with active or res isted movements of the foot or the ankle joint. Right Foot: 0.5x0.5cm similar lesion palpated on the inferior border of the firs t metatarsal head. No tenderness to palpation, erythema, or bruising noted anywh ere on right foot. IMAGING / LABORATORY FINDINGS: X-ray 3 views foot bilateral: No fractures appreciated. PROCEDURES: None COUNSELING / PATIENT EDUCATION: Plan of care: Do not recommend surgery documented in this encounter Plan of Treatment Order Schedule Name Type Priority Associated Diag noses Ordered: 05/20/2019 ORT - XR FOOT BILAT 3V GA Charge Routine Bilater al foot pain (CHARGE ONLY) Health Maintenance Due Date Last Done Comments COLON CANCER SCREENIN1957 COLONOSCOPY TETANUS SHOT (ADULT) 02/26/1972 BMI FOLLOW UP PLAN 1975 HEPATITIS C SCREENING 1975 HIV SCREENING 1975 FLU VACCINE > 6 MONTHS 03/13/2019 documented as of this encounter Results * XR FOOT BILATERAL (COMPLETE) (05/20/2019 1:58 PM CDT) Specimen Narrative Performed At For result, please reference physician' s note on the corresponding date. documented in this encounter Visit Diagnoses Diagnosis Bilateral foot pain - Primary Pain in limb Plantar fascial fibromatosis of both fe et documented in this encounter Insurance Type Payer Benefit Subscriber ID Effective Phone Address Plan / Dates Group POS [employer] OPEN xxxxxxxxxx 2017-P [id number] HMO/POS/EP [place] [employer] [id number] documented as of this encounter
--- OUTSIDE RECORDS SUMMARY | 2020-03-23 09:51 | XMS REPORT | Continuity of Care Document ---
Author Author [facility] t Organization [facility] Address [address] [place] [address] Phone Unavailable Care Team Providers Care Ems Educator Name Role Phone NONSTAFF PCP Unavailable Vianca MULTANI Attphys Unavailable Annabella STEIN, Vamshi Diaz Attphys Unavailable Doctor Unassigned, Name No Attphys Unavailable Renata Santos MD, Jason Attphys Theo YOUNG, Golden Attphys Draw, Lab [facility] Attphys Unavailable SCOTT DELANEY Attphys Unavailable Allan Weathers MD Attphys Theo YOUNG, Golden Admphys SCOTT DELANEY Admphys Unavailable Payers Payer Name Policy Type Policy Number Effective Date Expiration Date Ada Still Pos [id number] 1997 00:00:00 [facility] Problems Condition Name Condition Details Condition Category Status Onset Date Resolution Date Last Treatment Date Treating Clinician Comments Source Generalized edema Anasarca Problem Active [facility] Atrial fibrillation with rapid ventricular response At rial fibrillation with RVR Problem Active [facility] Retention of urine Urinary retention Problem Active [facility] Allergies, Adverse Reactions, Alerts This patient has no known allergies or adverse reactions. Medications Ordered Medication Name Filled Medication Name Start Date Stop Da te Current Medication? Ordering Clinician Indication Dosage Frequency Signature (SIG) Comments Components Source Acetaminophen 325 Mg Tablet Acetaminophen 325 Mg Tablet 2019-10-25 00:00:00 Yes Brannon Aggarwal Kit Planner 650 Every 6 Tata rs as needed for Mild Pain (1-3) Or Fever>100.8 [facility] Amiodarone Hcl 200 Mg Tablet Amiodarone Hcl 200 Mg Tablet 2019-10-12 4 00:00:00 Yes Brannon Aggarwal Np 200 Twice A Day [facility] Apixaban (Eliquis) 5 Mg Tablet Apixaban (Eliquis) 5 Mg Table t 2019-10-25 00:00:00 Yes Brannon Aggarwal Np 5 Twice A Day [facility] Clopidogrel Bisulfate (Plavix) 75 Mg Tablet Clopidogre l Bisulfate (Plavix) 75 Mg Tablet 2019-10-25 00:00:00 Yes Brannon Aggarwal Np 75 Daily [facility] Digoxin (Lanoxin) 250 Mcg Tablet Digoxin (Lanoxin) 250 Mcg T ablet 2019-10-25 00:00:00 Yes Brannon Aggarwal Np .25 Daily [facility] Diltiazem Hcl (Diltiazem 24HR Cd) 180 Mg Cap.er.24h Di ltiazem Hcl (Diltiazem 24HR Cd) 180 Mg Cap.er.24h 2019-10-25 00:00:00 Yes Brannon Aggarwal Np 180 Daily [facility] Furosemide 40 Mg Tablet Furosemide 40 Mg Tablet 2019-10-25 00:00:00 Yes Brannon Aggarwal Np 40 Daily [facility] Metoprolol Succinate (Toprol Xl) 50 Mg Tab.er.24h Meto prolol Succinate (Toprol Xl) 50 Mg Tab.er.24h 2019-10-25 00:00:00 Yes Brannon Aggarwal Np 150 Twice A Day [facility] Potassium Chloride 20 Meq Tab.er.prt Potassium Chloride 20 M eq Tab.er.prt 2019-10-25 00:00:00 Yes Brannon Aggarwal Np 20 Use As D irected [facility] Aspirin 81 Mg Tab.chew Aspirin 81 Mg Tab.chew Yes 81 Daily [facility] Dapagliflozin Propanediol (Farxiga) 10 Mg Tablet Dapag liflozin Propanediol (Farxiga) 10 Mg Tablet Yes Daily [facility] Levothyroxine Sodium 75 Mcg Tablet Levothyroxine Sodium 75 Mcg Tablet Yes 150 Daily [facility] Zolpidem Tartrate (Ambien) 10 Mg Tablet Zolpidem Tartrate (A mbien) 10 Mg Tablet Yes 10 Bedtime as needed for Insomnia [facility] Lisinopril/Hydrochlorothiazide (Lisinopr il-Hctz 20-12.5 Mg Tab) 1 Each Tablet, 2 Tab Oral Lisinopril/Hydrochlorothiazide (Lisinopr il-Hctz 20-12.5 Mg Tab) 1 Each Tablet, 2 Tab Oral 2019-10-25 00:00:00 No 2 Daily [facility] Meloxicam 7.5 Mg Tablet, 15 Mg Oral Meloxicam 7.5 Mg Tablet, 15 Mg Oral 2019-10-25 00:00:00 No 15 Daily [facility] Tadalafil 5 Mg Tablet, Oral Tadalafil 5 Mg Tablet, Oral 2019-10-25 00:00:00 No Daily [facility] Procedures Procedure Date / Time Performed Performing Clinician [facility] e MRI (magnetic resonance imaging) 2019-10-21 00:00:00 DON ELAINE [facility] Encounters Start Date/Time End Date/Time Encounter Type Admission Type [facility] Care Department Encounter ID Source 2019-12-03 00:00:00 2019-12-03 00:00:00 Transition of Care Emily Winchester [id number] 2019-12-03 00:00:00 2019-12-03 00:00:00 Orders Only D octor Unassigned, [place] [facility] [id number] 2019-12-01 08:29:00 2019-12-02 13:30:00 Hospital Encounter Jason Thornton [facility] ([facility]) [id number] 2019-12-01 00:00:00 2019-12-01 00:00:00 Telephone Jason Thornton [facility] ([facility]) [id number] 2019-11-28 13:37:43 2019-11-28 13:52:43 Implementation Specialist Payroll Visit [facility][note 3] Office Building [id number] 2019-11-24 00:00:00 2019-11-24 00:00:00 Orders Only Ezra roy Unassigned, [place] [facility] [id number] 2019-10-16 22:09:00 2019-10-25 17:43:00 Discharged Inpatient 1 SCOTT DELANEY [facility] [id number] [facility] 2019-05-20 13:04:53 2019-05-20 13:56:37 Office Visit Abdulaziz Guo [facility] [id number] Results Test Description Test Time Test Comments Results Result Comments Source CHEST 2 VIEWS 2020-03-18 09:54:00 [place] [address] Patient Name: RUDY ADKINS MR #: [id number] : 1955 Age/Sex: 65/M Req #: [id number] Adm Physician: Ordered by: ROXY MULTANI MD Report #: [id number] Location: OR Room/Bed: Procedure: [id number] DX/CHEST 2 VIEWS Exam Date: 03/18/20 Exam Time: 929 REPORT STATUS: Signed EXAM: CHEST 2 VIEWS DATE: 03/18/2020 9:30 AM INDICATION: Urinary retention COMPARISON: 10/19/2019 FINDINGS: The trachea is midline. The lungs are symmetrically expanded without evidence for large focal consolidation, pneumothorax, or significant pleural effusion. The cardiomediastinal silhouette is stable in appearance. The pulmonary vasculature is not engorged. No acute osseous abnormality is identified. The surrounding soft tissues are unremarkable. IMPRESSION: No acute cardiopulmonary process identified. Signed by: Dr. Uziel Vizcarra MD on 03/18/2020 9:55 AM Dictated By: UZIEL VIZCARRA MD 4 Transcribed By: TRUDY on 03/18/20954 COPY TO: ROXY MULTANI MD Bedside Glucose 2019-10-25 11:56:00 Test Item Bedside Glucose (test code = 45189-7) 105 70-120 Meter ID: [id number] Palmas Medical Centerodium Level 2019-10-25 06:53:00* Test Item Value Reference Range Interpretation Comments Sodium Level (test code = 2951-2) 135 136-145 L [facility]Potassium Jpbpm9534-63-59 06:53:00* Test Item Value Reference Range Interpretation Comments Potassium Level (test code = 2823-3) 4.3 3.5-5.1 [facility] HospitalChloride Ieogt1172-70-52 06:53:00* Test Item Value Reference Range Interpretation Comments Chloride Level (test code = 2075-0) 101 98-107 [facility] HospitalCarbon Dioxide Xeonq9031-14-12 06:53:00* Test Item Value Reference Range Interpretation Comments Carbon Dioxide Level (test code = 2028-9) 30 22-29 H [facility] HospitalAnion Akl5245-11-50 06:53:00* Test Item Value Reference Range Interpretation Comments Anion Gap (test code = 88591-1) 8.3 8-16 [facility] HospitalBlood Urea Gtxnhdph7114-97-47 06:53:00* Test Item Value Reference Range Interpretation Comments Blood Urea Nitrogen (test code = 3094-0) 14 7-26 [facility] HospitalCreatinine2020-03-14 06:53:00* Test Item Value Reference Range Interpretation Comments Creatinine (test code = 2160-0) 1.01 0.72-1.25 [facility] HospitalBUN/Creatinine Jvoap0359-49-54 06:53:00* Test Item Value Reference Range Interpretation Comments BUN/Creatinine Ratio (test code = 3097-3) 14 02-04 [facility] HospitalEstimat Glomerular Filtration Rate 2019-10-25 06:53:00* Test Item Value Reference Range Interpretation Comments Estimat Glomerular Filtration Rate (test code = 696502111) > 60 >60 Ranges were taken from the National Kidney Disease Education Program and the [facility] Kidney Foundation literature.Reference ranges:60 or greater: Cvffwj69-14 ( for 3 consecutive months): Chronic kidney disease 15 or less: Kidney failureEl [facility] Children's HospitalGlucose Tizpq7027-13-88 06:53:00* Test Item Value Reference Range Interpretation Comments Glucose Level (test code = QDS9078) 110 74-118 [facility] HospitalCalcium Ipzxr7158-64-06 06:53:00* Test Item Value Reference Range Interpretation Comments Calcium Level (test code = 29410-3) 9.2 8.4-10.2 [facility] HospitalPhosphorus Jusjy5070-39-53 06:53:00* Test Item Value Reference Range Interpretation Comments Phosphorus Level (test code = OHZ7895) 3.0 2.3-4.7 [facility] HospitalMagnesium Xulwv1322-31-81 06:53:00* Test Item Value Reference Range Interpretation Comments Magnesium Level (test code = 37985-5) 2.0 1.3-2.1 [facility] HospitalProthrombin Nlbz2318-79-07 06:52:00* Test Item Value Reference Range Interpretation Comments Prothrombin Time (test code = 5902-2) 14.0 11.9-14.5 [facility] HospitalProthromb Time International Ratio 2019-10-25 06:52:00* Test Item Value Reference Range Interpretation Comments Prothromb Time International Ratio (test code = 6301-6) 1.02 Oral Anticoagulant Therapy INR Values:1. Low Intensity Therapy 1.5 - 2.02 . Moderate Intensity Therapy 2.0 - 3.03. High Intensity Therapy(1) 2.5 - 3. 54. High Intensity Therapy(2) 3.0 - 4.05. Panic Value INR > 5.0 [facility] HospitalActivated Partial Thromboplast Time 2019-10-25 06:52:00* Test Item Value Reference Range Interpretation Comments Activated Partial Thromboplast Time (test code = 14312-0) 62.7 23.8-35.5 H [facility] HospitalWhite Blood Cftcl8605-48-13 06:32:00* Test Item Value Reference Range Interpretation Comments White Blood Count (test code = 6690-2) 7.24 4.8-10.8 [facility] HospitalRed Blood Trivj9257-93-63 06:32:00* Test Item Value Reference Range Interpretation Comments Red Blood Count (test code = 789-8) 5.10 4.3-5.7 [facility] HospitalHemoglobin2020-03-14 06:32:00* Test Item Value Reference Range Interpretation Comments Hemoglobin (test code = 41641-8) 15.9 14.0-18.0 [facility] HospitalHematocrit2020-03-14 06:32:00* Test Item Value Reference Range Interpretation Comments Hematocrit (test code = 4544-3) 49.2 38.2-49.6 [facility] HospitalMean Corpuscular Xdnwxk3727-14-92 06:32:00* Test Item Value Reference Range Interpretation Comments Mean Corpuscular Volume (test code = 787-2) 96.5 81-99 [facility] HospitalMean Corpuscular Lknqloxhpg1991-87-90 06:32:00* Test Item Value Reference Range Interpretation Comments Mean Corpuscular Hemoglobin (test code = 785-6) 31.2 28-32 [facility] HospitalMean Corpuscular Hemoglobin Concent 2019-10-25 06:32:00* Test Item Value Reference Range Interpretation Comments Mean Corpuscular Hemoglobin Concent (test code = 786-4) 32.3 31-35 [facility] HospitalRed Cell Distribution Jijhq1703-01-57 06:32:00* Test Item Value Reference Range Interpretation Comments Red Cell Distribution Width (test code = 52365-5) 14.2 11.7 -14.4 [facility] HospitalPlatelet Joclr7455-18-65 06:32:00* Test Item Value Reference Range Interpretation Comments Platelet Count (test code = 777-3) 169 140-360 [facility] HospitalNeutrophils (%) (Auto)2019-10-25 06:32:00 * Test Item Value Reference Range Interpretation Comments Neutrophils (%) (Auto) (test code = 79668-7) 62.8 38.7-80.0 [facility] HospitalLymphocytes (%) (Auto)2019-10-25 06:32:00 * Test Item Value Reference Range Interpretation Comments Lymphocytes (%) (Auto) (test code = 736-9) 21.4 18.0-39.1 [facility] HospitalMonocytes (%) (Auto)2019-10-25 06:32:00* Test Item Value Reference Range Interpretation Comments Monocytes (%) (Auto) (test code = 5905-5) 14.5 4.4-11.3 H [facility] HospitalEosinophils (%) (Auto)2019-10-25 06:32:00 * Test Item Value Reference Range Interpretation Comments Eosinophils (%) (Auto) (test code = 713-8) 0.8 0.0-6.0 [facility] HospitalBasophils (%) (Auto)2019-10-25 06:32:00* Test Item Value Reference Range Interpretation Comments Basophils (%) (Auto) (test code = 706-2) 0.4 0.0-1.0 [facility] HospitalIM GRANULOCYTES %2019-10-25 06:32:00* Test Item Value Reference Range Interpretation Comments IM GRANULOCYTES % (test code = IM GRANULOCYTES %) 0.1 0.0- 1.0 [facility] HospitalNeutrophils # (Auto)2019-10-25 06:32:00* Test Item Value Reference Range Interpretation Comments Neutrophils # (Auto) (test code = 751-8) 4.5 2.1-6.9 [facility] HospitalLymphocytes # (Auto)2019-10-25 06:32:00* Test Item Value Reference Range Interpretation Comments Lymphocytes # (Auto) (test code = 63088-0) 1.6 1.0-3.2 [facility] HospitalMonocytes # (Auto)2019-10-25 06:32:00* Test Item Value Reference Range Interpretation Comments Monocytes # (Auto) (test code = 742-7) 1.1 0.2-0.8 H [facility] HospitalEosinophils # (Auto)2019-10-25 06:32:00* Test Item Value Reference Range Interpretation Comments Eosinophils # (Auto) (test code = 711-2) 0.1 0.0-0.4 [facility] HospitalBasophils # (Auto)2019-10-25 06:32:00* Test Item Value Reference Range Interpretation Comments Basophils # (Auto) (test code = 704-7) 0.0 0.0-0.1 [facility] HospitalAbsolute Immature Granulocyte (auto 2019-10-25 06:32:00* Test Item Value Reference Range Interpretation Comments Absolute Immature Granulocyte (auto (rita t code = Absolute Immature Granulocyte (auto) 0.01 0-0.1 [facility] HospitalCHEST SINGLE (PORTABLE)2019-10-19 09:46:00 [place] [address] Patient Name: RUDY ADKINS MR #: [id number] : 1955 Age/Sex: 64/M Req #: [id number] Adm Physician: SCOTT DELANEY MD Ordered by: ADA PRATT MD Report #: [id number] Location: ICU Room/Bed: ICU [facility] Procedure: [id number] DX/LOR[place] ST SINGLE (PORTABLE) Exam Date: 10/19/19 Exam Time: 820 REPORT STATUS: Signed EXAMI NATION: CHEST SINGLE (PORTABLE) INDICATION: Shortness of breath. COMPARISON: Chest radiograph 2019. FINDINGS: TUBES and LINES: Non e. LUNGS: Lungs are moderately inflated. Persistent patchy opacities at th e right lung base. No evidence of pulmonary edema. PLEURA: No pleural ef fusion or pneumothorax. HEART AND MEDIASTINUM: The cardiomediastinal silh ouette is unremarkable. There are atherosclerotic calcifications within the ao rta. BONES AND SOFT TISSUES: No acute osseous lesion. Soft tissues are unremarkable. UPPER ABDOMEN: No free air under the diaphragm. IMPR ESSION: Persistent patchy right lower lung opacities, which may represent ate lectasis or pneumonia in the appropriate clinical setting. Signed by: Dr. Anthony Sandoval MD on 10/19/2019 9:48 AM Dictated By: ANTHONY SANDOVAL MD [facility] Signed By: ANTHONY SANDOVAL MD on 10/19/19947 Transcribed By: TRUDY on 04/01 COPY TO: ADA PRATT MD Total Fjuxzgwhk2592-97-50 06:01:00* Test Item Value Reference Range Interpretation Comments Total Bilirubin (test code = 1975-2) 1.8 0.2-1.2 H [facility] HospitalAspartate Amino Transf (AST/SGOT) 2019-10-18 06:01:00* Test Item Value Reference Range Interpretation Comments Aspartate Amino Transf (AST/SGOT) (test code = Aspartate Amino Transf (AST/SGOT)) 27 5-34 [facility] HospitalAlanine Aminotransferase (ALT/SGPT) 2019-10-18 06:01:00* Test Item Value Reference Range Interpretation Comments Alanine Aminotransferase (ALT/SGPT) (test code = 1742-6) 39 0-55 [facility] HospitalTotal Qhjlnyo9000-00-90 06:01:00* Test Item Value Reference Range Interpretation Comments Total Protein (test code = 2885-2) 6.0 6.5-8.1 L [facility] HospitalAlbumin2020-03-07 06:01:00* Test Item Value Reference Range Interpretation Comments Albumin (test code = 1751-7) 3.5 3.5-5.0 [facility] HospitalGlobulin2020-03-07 06:01:00* Test Item Value Reference Range Interpretation Comments Globulin (test code = 91785-5) 2.5 2.3-3.5 [facility] HospitalAlbumin/Globulin Ujtna5277-44-32 06:01:00 * Test Item Value Reference Range Interpretation Comments Albumin/Globulin Ratio (test code = 1759-0) 1.4 0.8-2.0 [facility] HospitalAlkaline Xlbmwakzrnu2931-51-35 06:01:00* Test Item Value Reference Range Interpretation Comments Alkaline Phosphatase (test code = 6768-6) 28 40-150 L [facility] HospitalCreatine Kinase LK8250-37-26 15:38:00* Test Item Value Reference Range Interpretation Comments Creatine Kinase MB (test code = 57760-0) 2.20 0-5.0 [facility] HospitalTroponin C7033-07-81 15:38:00* Test Item Value Reference Range Interpretation Comments Troponin I (test code = YWJ3353) 0.038 0-0.300 [facility] HospitalCreatine Enahnw3834-70-12 15:26:00* Test Item Value Reference Range Interpretation Comments Creatine Kinase (test code = 2157-6) 126 30-200 [facility] HospitalTriglycerides Efzwg5261-20-53 07:13:00* Test Item Value Reference Range Interpretation Comments Triglycerides Level (test code = 2571-8) 67 0-149 [facility] HospitalCholesterol Gjuvv0774-65-41 07:13:00* Test Item Value Reference Range Interpretation Comments Cholesterol Level (test code = 2093-3) 160 0-199 Less than 200 mg/dL Low Avjn323 - 239 mg/dL Borderline Utst322 m g/dl and greater High Risk [facility] HospitalLDL Yzkttrkrgsq3386-83-65 07:13:00* Test Item Value Reference Range Interpretation Comments LDL Cholesterol (test code = 2089-1) 100 60-130 [facility] HospitalHDL Toauixfjvmn1558-38-70 07:13:00* Test Item Value Reference Range Interpretation Comments HDL Cholesterol (test code = 2085-9) 47 40-60 [facility] HospitalCholesterol/HDL Coywp5366-91-60 07:13:00 * Test Item Value Reference Range Interpretation Comments Cholesterol/HDL Ratio (test code = 9830-1) 3.4 3.9-4.7 L [facility] HospitalCHEST SINGLE (PORTABLE)2019-10-16 20:21:00 [place] [address] Patient Name: RUDY ADKINS MR #: [id number] : 1955 Age/Sex: 64/M Req #: [id number] Adm Physician: Ordered by: PREMA GONZALEZ MD Report #: [id number] Location: ER Room/Bed: Procedure: [id number] DX/CH EST SINGLE (PORTABLE) Exam Date: 10/16/19 Exam Time: 1954 REPORT STATUS: Signed EXAM INATION: CHEST SINGLE (PORTABLE) INDICATION: wide-complex afib RVR, ac elier CHF COMPARISON: None FINDINGS: AP view TUBES and LI JEANETH: None. LUNGS: Lungs are well inflated. There is right basilar opacit y which could be due to effusion and or atelectasis. HEART AND MEDIASTINU M: The cardiomediastinal silhouette is unremarkable. BONES AND SOFT TI SSUES: No acute osseous lesion. Soft tissues are unremarkable. UPPER AB DOMEN: No free air under the diaphragm. IMPRESSION: Right basilar opacity which could be due to effusion and or atelectasis. Signed by: Dale Kirk MD on 10/16/2019 8:26 PM Dictated By: AIME Munguia 25 Transcribed By: TRUDY on 10/16/192025 COPY TO: PREMA GONZALEZ MD Thyroid Stimulating Hormone (TSH)2019-10-16 19:38:00* Test Item Value Reference Range Interpretation Comments Thyroid Stimulating Hormone (TSH) (test code = 27720-3) 1.123 0.350-4.940 [facility] HospitalB-Type Natriuretic Cagbtgr2534-36-11 19:28:00* Test Item Value Reference Range Interpretation Comments B-Type Natriuretic Peptide (test code = 94333-2) 239.7 0-100 H [facility]
--- OUTSIDE RECORDS SUMMARY | 2020-03-23 09:52 | XMS REPORT | Summary of Care ---
Author Author [facility] - Health Organization [facility] - Health Address Unknown Phone Unavailable Care Team Providers Care Tape Cutter Name Role Phone Eliseo Gao MD PCP Reason for Referral * (Routine) Referred By Contact Referred To Contact Status Reason Specialty Diagnoses / Procedures Heather Bowden, [facility] [address] [place] [facility] [address] [place] [address] Eliseo Gao MD [address] [facility] [address] [place] [address] Pending Review Diagnoses Paroxysmal atrial fibrillation P rocedures Discharge Follow-up: PCP ELISEO GAO; 1 Week Reason for Visit * Auth/Cert Referred By Contact Referred To Contact Status Reason Specialty Diagnoses / Procedures [facility] [address] [place] [address] Surgery Diagnoses Paroxysmal atrial fibrillation afib Procedures WI COMPRE ELECTROPHYSIOL XM W/LEFT VENTR PACNG/REC WI STIM/PACING HEART POST IV DRUG INFU WI EPHYS EVL TRNSPTL TX ATRIAL FIB ISOLAT PULM VEIN WI INTRACARDIAC ELECTROPHYSIOLOGIC 3D MAPPING WI INTRACARD ECHO, THER/DX INTERVENT WI ICAR CATHETER ABLATION ARRHYTHMIA ADD ON WI ABLATE L/R ATRIAL FIBRIL W/ISOLATED PULM VEIN Encounter Details Care Team Description Date [place] [address] [facility] [address], [place] [id number] [place] [address] [place] [address], [place] [id number] 1, Clc Cardiac Proc Room Anesthesia, Clc Ep Lab Obesity (BMI 30-39.9) 12/01/2019 [facility] Intensi ve - Encounter Care Unit CLC 4C 12/02/2019 [address] [facility] [place] [address] Allergies No Known Allergiesdocumented as of this encounter (statuses as of 12/02/2019) Medications End Date Status Medication Sig Dispensed Refills Start Date Active clopidogreL 75 mg tablet Take 75 mg by 0 mouth daily. Active furosemide 40 mg tablet Take 40 mg by 0 mouth daily. Active apixaban (ELIQUIS) 5 mg Take 5 mg by 0 tablet mouth 2 (two) times daily. Active Levothyroxine 150 mcg Take by 0 capsule mouth. Active potassium chloride 20 mEq Take by 0 tablet mouth every other day. Active coenzyme Q10 (COQ-10) 100 Take 100 mg 0 mg softgel by mouth. Active Lactobacillus acidophilus Take by 0 (PROBIOTIC ORAL) mouth. Active zolpidem (AMBIEN) 10 mg Take 10 mg by 0 tablet mouth as needed for Insomnia. Active dulaglutide (TRULICITY) inject under 0 1.5 mg/0.5 mL PnIj the skin weekly. 01/02/2020 Active pantoprazole 40 mg EC Take 1 tablet 30 tablet 0 tabletIndications: by mouth 0 Paroxysmal atrial daily for 30 fibrillation days. 01/01/2020 Active sucralfate 100 mg/mL Take 10 mL by 600 mL 0 suspensionIndications: mouth 2 (two) 0 Paroxysmal atrial times daily fibrillation for 30 days. 01/02/2020 Active amiodarone 200 mg Take 1 tablet 30 tablet 0 tabletIndications: by mouth 0 Paroxysmal atrial daily for 30 fibrillation days. 12/02/2019 Discontinued metoprolol succinate 100 Take by 0 mg CSpX mouth. 12/02/2019 Discontinued diltiazem XR (DILT-XR) Take 180 mg 0 180 mg 24 hr capsule by mouth daily. 12/02/2019 Discontinued digoxin 250 mcg (0.25 mg) Take 250 mcg 0 tablet by mouth daily. 12/02/2019 Discontinued amiodarone 200 mg tablet Take 200 mg 0 by mouth 2 (two) times daily. documented as of this encounter (statuses as of 12/02/2019) Active Problems Problem Noted Date S/P ablation of atrial fibrillation 12/01/2019 Overview: PVI by Dr. Saldaña on 12/01/2019 Obesity (BMI 30-39.9) 12/01/2019 Bradycardia 12/01/2019 documented as of this encounter (statuses as of 12/02/2019) Social History Date Tobacco Use Types Packs/Day Years Used Never Assessed Sex Assigned at Date Recorded Not on file Industry Job Start Date Occupation Not on file Not on file Not on file Travel End Travel History Travel Start No recent travel history available. documented as of this encounter Last Filed Vital Signs Reading Time Taken Comments Vital Sign 123/71 12/02/2019 12:00 PM CDT Blood Pressure 68 12/02/2019 12:00 PM CDT Pulse 36.7 C (98 F) 12/02/2019 12:00 PM CDT Temperature 19 12/02/2019 12:00 PM CDT Respiratory Rate 95% 12/02/2019 12:00 PM CDT Oxygen Saturation - - Inhaled Oxygen Concentration 98.6 kg (217 lb 6 oz) 12/02/2019 8:30 AM CDT Weight 172.7 cm (5' 8") 12/01/2019 6:18 AM CDT Height 33.05 12/01/2019 6:18 AM CDT Body Mass Index documented in this encounter Discharge Instructions * Instructions* Val Manning RN - 12/02/2019 Per Conversation with Allan Hubbard POLICYHOLDER INFORMATION CLERK: Follow up with Dr. Yanez in 2 weeks. No exercise or weight bearing activities until after this visit. Walking as exercise to resume after this follow up visit with Dr. Yanez. Be sure to stay hydrated, drink plenty of water * Attachments The following attachments cannot be sent through Care Everywhere.* Cardiac Catheterization, Bleeding or Hematoma After (Bermudian) * Catheter Ablation, Discharge Instructions for (Bermudian) * Stroke and Heart Disease (Bermudian) * Smoking,Tips for Quitting (Cardiovascular) (Bermudian) * Blood Thinners (Anticoagulants), Using (Bermudian) documented in this encounter Progress Notes * Lyly Nayak MD - 12/02/2019 10:05 AM CDT Critical Care Medicine Progress Note Date of Service: 12/02/2019 ICU Day:2 Intubation Day:0 Last 24 hour events (major events): s/p ablation for a. Fib, was on dopamine dri p of bradycardia, now off. Subjective: Gen: Denies fevers, chills, weight loss HEENT:Denies headaches, vision changes, throat pain, hearing loss Pulm:Denies dyspnea, cough, sputum CV:Denies chest pain, palpitations GI:Denies nausea, vomiting, abdominal pain, diarrhea :Denies dysuria, hematuria Neuro:Denies loss of sensation, seizures, headaches, motor weakness MSK:Denies join pain, muscle pain Skin:Denies rash, diaphoresis Lines (with dates):Radial arterial line, PIV Mireles:None Intake/Output: Intake/Output Summary (Last 24 hours) at 12/02/2019 1005 Last data filed at 12/02/2019 0800 Gross per 24 hour Intake 550 ml Output 1700 ml Net -1150 ml Physical Exam: Temp: [35.5 C (95.9 F)-36.9 C (98.5 F)] Heart Rate (monitor): [56-76] Pulse: [57-76] Resp: [11-27] BP: (101-129)/(59-90) Arterial Line BP: (111-158)/(30-80) MAP (mmHg): [74-89] MAP: [57 mmHg-106 mmHg] General: alert and oriented x 4 (person, place, date/time and situation); no quincy arent distress, well developed, well nourished, obese HEENT: normocephalic atraumatic, pupils equal, round, reactive to light Neck: supple, no lymphadenopathy, no bruits, no JVD, full range of motion Lungs: clear to auscultation bilaterally Cardio: S1, S2 normal; no murmurs, rubs or gallops, regular rate and rhythm Abdomen: soft; non-tender; non-distended; normoactive bowel sounds : not examined Rectal: not examined Extremities: no clubbing, cyanosis, or edema Skin: no rashes Neuro: no focal deficits, alert and oriented x 3 Labs (pertinent only)/Imaging: Recent Results (from the past 24 hour(s)) POCT GLUCOSE (AUTOMATED) Collection Time: 12/01/19 12:38 PM Result Value Ref Range POCT GLU 310 (H) 70 - 110 mg/dL POCT GLUCOSE (AUTOMATED) Collection Time: 12/01/19 5:25 PM Result Value Ref Range POCT GLU 233 (H) 70 - 110 mg/dL POCT GLUCOSE (AUTOMATED) Collection Time: 12/01/19 7:08 PM Result Value Ref Range POCT GLU 227 (H) 70 - 110 mg/dL Basic Metabolic Panel (NA, K, CL, CO2, GLUCOSE, BUN, CREATININE, CA) Collection Time: 12/02/19 4:17 AM Result Value Ref Range NA 136 135 - 145 mmol/L K 3.9 3.5 - 5.0 mmol/L CL 102 98 - 108 mmol/L CO2 TOTAL 27 23 - 31 mmol/L AGAP 7 2 - 16 BUN 17 7 - 23 mg/dL GLUCOSE 164 (H) 70 - 110 mg/dL CREATININE 0.70 0.60 - 1.25 mg/dL CALCIUM 8.7 8.6 - 10.6 mg/dL eGFR Calculation (Non-) 114.3 mL/min/1.73m2 eGFR Calculation () 138.5 mL/min/1.73m2 Magnesium Serum Collection Time: 12/02/19 4:17 AM Result Value Ref Range MAGNESIUM 1.8 1.7 - 2.4 mg/dL CBC WITH DIFFERENTIAL Collection Time: 12/02/19 4:17 AM Result Value Ref Range WBC 12.88 (H) 4.20 - 10.70 10*3/L RBC 4.14 (L) 4.26 - 5.52 10*6/L HGB 12.5 12.2 - 16.4 g/dL HCT 37.8 (L) 38.4 - 49.3 % MCV 91.3 81.7 - 95.6 fL MCH 30.2 26.1 - 32.7 pg MCHC 33.1 31.2 - 35.0 g/dL RDW-SD 41.0 38.5 - 51.6 fL RDW-CV 12.3 12.1 - 15.4 % PLT 219 150 - 328 10*3/L MPV 8.9 (L) 9.8 - 13.0 fL NRBC/100 WBC 0.0 0.0 - 10.0 /100 WBCs NRBC x10^3 <0.01 10*3/L GRAN MAT (NEUT) % 74.7 % IMM GRAN % 0.40 % LYMPH % 16.1 % MONO % 8.0 % EOS % 0.6 % BASO % 0.2 % GRAN MAT x10^3(ANC) 9.63 (H) 1.99 - 6.95 10*3/uL IMM GRAN x10^3 0.05 0.00 - 0.06 10*3/uL LYMPH x10^3 2.07 1.09 - 3.23 10*3/uL MONO x10^3 1.03 (H) 0.36 - 1.02 10*3/uL EOS x10^3 0.08 0.06 - 0.53 10*3/uL BASO x10^3 <0.03 0.01 - 0.09 10*3/uL No final results containing an impression from the past 2 days were found. Assessment/Plan: Talat Rivero is a 64 year old male Neuro: No active issues CV: A. Fib s/p ablation, now in normal sinus rhythm, C/w AC. Bradycardia resolved post procedure, off dopamine drip now. CAD s/p PCI c/w statin and plavix Respiratory: YOLANDA on CPAP. GI:No active issues :No active issues ID:No active issues Heme:No active issues Endo:No active issues MSK:No active issues Ventilator Bundle: Sedation/Analgesia + RASS:N/A Stress ulcer prophylaxis:PPI DVT prophylaxis: Apixaban Nutrition:Cardiac Code status:Full Disposition: IMU Lyly Nayak MD documented in this encounter Plan of Treatment Order Schedule Name Type Priority Associated Diag noses TOMORROW AM AT 0600 for [address] arting 12/02/2019 until 12/02/2019 EKG-12 LEAD ROUTINE HEART STATION Routine Health Maintenance Due Date Last Done Comments HEPATITIS C (HCV) SCREEN 1955 DTaP,Tdap,and Td Vaccines 02/26/1968 (1 - Tdap) COLONOSCOPY 2007 Zoster Recombinant 2007 Vaccine (SHINGRIX) (1 of 2) INFLUENZA VACCINE (#1) 2019 PNEUMOCOCCAL 0-64 YEARS Aged Out No longer elig ible based COMBINED SERIES on patient's age to complete this topic documented as of this encounter Procedures Comments Procedure Name Priority Date/Time Associated Diag nosis CBC WITH DIFFERENTIAL Routine 12/02/2019 4:17 AM CDT CBC WITH DIFFERENTIAL Routine 12/02/2019 4:17 AM CDT BASIC METABOLIC PANEL BETTINA 12/02/2019 (NA, K, CL, CO2, GLUCOSE, 4:17 AM CDT BUN, CREATININE, CA) MAGNESIUM BETTINA 12/02/2019 4:17 AM CDT POCT GLUCOSE (AUTOMATED) Routine 12/01/2019 7:08 PM CDT POCT GLUCOSE (AUTOMATED) Routine 12/01/2019 5:25 PM CDT POCT GLUCOSE (AUTOMATED) Routine 12/01/2019 12:38 PM CDT POCT ACT LOW RANGE Routine 12/01/2019 8:37 AM CDT EKG-12 LEAD Routine 12/01/2019 6:24 AM CDT HB ABO GROUPING Routine 12/01/2019 Paroxysmal atr ial 6:12 AM CDT fibrillation CORONAVIRUS COVID-19 STAT 12/01/2019 Paroxysma l atrial TESTING 5:56 AM CDT fibrillation NOTICE OF PRIVACY Routine 12/01/2019 PRACTICES 5:41 AM CDT CONSENT/REFUSAL FOR Routine 12/01/2019 DIAGNOSIS AND TREATMENT 5:40 AM CDT ASSIGNMENT OF BENEFITS Routine 12/01/2019 5:40 AM CDT documented in this encounter Results * CBC WITH DIFFERENTIAL (12/02/2019 4:17 AM CDT) WBC 12.88 (H) 4.20 - 10.70 [facility] 10*3/L [facility] RBC 4.14 (L) 4.26 - 5.52 10*6/L [facility] HGB 12.5 12.2 - 16.4 g/dL [facility] RY [facility] HCT 37.8 (L) 38.4 - 49.3 % [facility] MCV 91.3 81.7 - 95.6 fL [facility] MCH 30.2 26.1 - 32.7 pg [facility] MCHC 33.1 31.2 - 35.0 g/dL [facility] RDW-SD 41.0 38.5 - 51.6 fL [facility] RDW-CV 12.3 12.1 - 15.4 % [facility] PLT 219 150 - 328 10*3/L [facility] MPV 8.9 (L) 9.8 - 13.0 fL [facility] NRBC/100 WBC 0.0 0.0 - 10.0 /100 WBCs [facility] NRBC x10^3 <0.01 10*3/L [facility] GRAN MAT (NEUT) 74.7 % [facility] Y % [facility] IMM GRAN % 0.40 % [facility] LYMPH % 16.1 % [facility] MONO % 8.0 % [facility] EOS % 0.6 % [facility] BASO % 0.2 % [facility] GRAN MAT 9.63 (H) 1.99 - 6.95 10*3/uL [facility] x10^3(ANC) [facility] IMM GRAN x10^3 0.05 0.00 - 0.06 10*3/uL [facility] LYMPH x10^3 2.07 1.09 - 3.23 10*3/uL [facility] MONO x10^3 1.03 (H) 0.36 - 1.02 10*3/uL [facility] EOS x10^3 0.08 0.06 - 0.53 10*3/uL [facility] BASO x10^3 <0.03 0.01 - 0.09 10*3/uL [facility] Specimen Blood - ARTERIAL Performing Organization Address City/State/Zipcode Ph one Number [facility] CLIA: [id number], [address] [place], [place] [address] [facility] * Magnesium Serum (12/02/2019 4:17 AM CDT) MAGNESIUM 1.8 1.7 - 2.4 mg/dL [facility] Specimen Blood - ARTERIAL Performing Organization Address City/State/Zipcode Ph one Number [facility] CLIA: [id number], [address] [place], [place] [address] [facility] * Basic Metabolic Panel (NA, K, CL, CO2, GLUCOSE, BUN, CREATININE, CA) (12/02/2019 4:17 AM CDT) NA 136 135 - 145 mmol/L [facility] K 3.9 3.5 - 5.0 mmol/L [facility] CL 102 98 - 108 mmol/L [facility] CO2 TOTAL 27 23 - 31 mmol/L [facility] AGAP 7 2 - 16 [facility] BUN 17 7 - 23 mg/dL [facility] GLUCOSE 164 (H) 70 - 110 mg/dL [facility] CREATININE 0.70 0.60 - 1.25 mg/dL [facility] CALCIUM 8.7 8.6 - 10.6 mg/dL [facility] eGFR 114.3 mL/min/1.73m2 [facility] Calculation [facility] ([facility] Citizen [place]) eGFR 138.5 mL/min/1.73m2 [facility] Calculation [facility] ([facility] Citizen Of [place]) Specimen Blood - ARTERIAL Narrative Performed At Association of Glomerular Filtration Rate (GFR) and S taging of Kidney Disease* [facility] + + +------ + [facility] | GFR (mL/min/1.73 m2) | With Kidney Damage | W ithout Kidney Damage CAMPUS + + -------+ + | >90 | S tage one | Normal + + -------+ + | 60-89 | St age two | Decreased GFR + + -------+ + | 30-59 | St age three | Stage three + + -------+ + | 15-29 | St age four | Stage four + + -------+ + | <15 (or dialysis) | Stage fi ve | Stage five + + -------+ + *Each stage assumes the associated GFR level has been in effect for at least three months. Stages 1 to 5, with or without kidney disease, indicate chronic kidney disease. Notes: Determination of stages one and two (with eGFR >59mL/min/1.73 m2) requires estimation of kidney damage fo r at least three months as defined by structural or functional abnormalities of the kidney, manifested by either: Pathological abnormalities or Markers o f kidney damage (including abnormalities in the composition of the blood or urin e or abnormalities in imaging tests). Performing Organization Address [facility] one Number [facility] CLIA: [id number], [address] [place], [place] [address] [facility] * POCT GLUCOSE (AUTOMATED) (12/01/2019 7:08 PM CDT) POCT GLU 227 (H)Comment: Notified 70 - 110 mg/dL [facility] Specimen Blood Performing Organization Address [facility] one Number [facility] CLIA: [id number], [address] [place] [address] St * POCT GLUCOSE (AUTOMATED) (12/01/2019 5:25 PM CDT) POCT GLU 233 (H) 70 - 110 mg/dL [facility] Specimen Blood Performing Organization Address [facility] one Number [facility] CLIA: [id number], [address] [place] [address] St * POCT GLUCOSE (AUTOMATED) (12/01/2019 12:38 PM CDT) POCT GLU 310 (H) 70 - 110 mg/dL [facility] Specimen Blood Performing Organization Address [facility] one Number [facility] CLIA: [id number], [address] [place] [address] St * POCT ACT LOW RANGE (12/01/2019 8:37 AM CDT) ACTLR 282 (H) 89 - 169 Seconds [facility] RY SERVICES Specimen Blood Performing Organization Address City/[facility] one Number [facility] SERVICES CLIA: [id number], [address] [place] [address] * Type and Screen - ONCE Routine (12/01/2019 6:12 AM CDT) Pathologist [facility] ABO & RH A Positive LAB Comment: Performed at [facility] Laboratory Services - CLC Blood Bank [address] [place], [place] [address] Toll Free: [phone] CLIA No. [id number] IAT Negative LAB Comment: Performed at [facility] Laboratory Services - CLC Blood Bank [address] [place], [place] [address] Toll Free: [phone] CLIA No. [id number] Specimen Blood - VENOUS Performing Organization Address [facility] one Number BLD LAB * CORONAVIRUS COVID-19 TESTING (12/01/2019 5:56 AM CDT) Pathologist [facility] SARS-CoV-2 Not Detected Not Detected [facility] Specimen Swab - NASOPHARYNGEAL SWAB Narrative Performed At ID NOW COVID-19 Assay is an isothermal nucleic acid amplification test intended [facility] for the qualitative detection of nucleic acid from SA RS-CoV-2 viral RNA in [facility] nasopharyngeal (POLICYHOLDER INFORMATION CLERK) specimens. It is used under Emerg ency Use Authorization CAMPUS (EUA) by FDA. The limit of detection (L OD) of the assay is 125 Genome Equivalents/mL. A positive result is indicative of the presence of SARS-CoV-2 RNA. Clinical correlation with patient history and ot her diagnostic information is necessary to determine patient infection status. A negative (Not Detected) result does n ot preclude SARS-CoV-2 infection. Clinical correlation with patient histo ry and other diagnostic information should be used in patient management de cisions. Invalid: Please collect a new specimen for repeat patient testing if clinically indicated. Performing Organization Address [facility] one Number [facility] CLIA: [id number], [address] [place], [place] [address] [facility] documented in this encounter Visit Diagnoses Diagnosis Paroxysmal atrial fibrillation - Primar y Atrial fibrillation Obesity (BMI 30-39.9) Obesity, unspecified Bradycardia Other specified cardiac dysrhythmias documented in this encounter Administered Medications Action Date Dose Rate Site Medication Order MAR Action acetaminophen (TYLENOL) tablet 650 mg 650 mg, Oral, Q6HPRN, Starting Sun12/01/19 at 1122, Until Discontinued, Routine, Pain (scale 1-3) acetaminophen-codeine (TYLENOL #3) 300-30 mg tablet 1 tablet 1 tablet, Oral, Q6HPRN, Starting Sun12/01/19 at 1125, Until Sun12/03/19 at 1124, Routine, Pain (scale 4-6) 12/02/2019 8:53 AM CDT 200 mg amiodarone (PACERONE) tablet 200 mg Given 200 mg, Oral, DAILY, First dose on Sun12/02/19 at 0900, Until Discontinued, Routine 12/02/2019 8:54 AM CDT 5 mg apixaban (ELIQUIS) tablet 5 mg Given 5 mg, Oral, BID, First dose on Sun12/02/19 at 0800, Until Discontinued, Routine 12/02/2019 8:53 AM CDT 75 mg clopidogreL (PLAVIX) tablet 75 mg Given 75 mg, Oral, DAILY, First dose on Sun12/02/19 at 0900, Until Discontinued, Routine 12/02/2019 8:53 AM CDT 100 mg coenzyme Q10 (CO Q-10) softgel 100 mg Given 100 mg, Oral, DAILY, First dose on Sun12/02/19 at 0900, Until Discontinued, Routine docusate (COLACE) capsule 100 mg 100 mg, Oral, QDAILYPRN, Starting Sun12/01/19 at 1123, Until Discontinued, Routine, Constipation 12/02/2019 3:00 AM CDT 2.5 mcg/kg/min 10.21 mL/hr DOPamine 800 mg/500 mL (1,600 mcg/mL) Rate Change infusion RTU 2.5-20 mcg/kg/min 108.9 kg (10.2094-81.675 mL/hr, rounded to 10.21-81.68 mL/hr), IV Infusion, at 10.21-81.68 mL/hr, TITRATE, Starting Mo n 12/01/19 at 1050, Until Discontinued, Routine, MAP Goal > or = 65 mmHg 5 mcg/kg/min 20.42 mL/hr Rate Change 12/01/2019 11:00 PM CDT 7.5 mcg/kg/min 30.63 mL/hr Rate Change 12/01/2019 8:00 PM CDT 12/02/2019 8:54 AM CDT 40 mg furosemide (LASIX) tablet 40 mg Given 40 mg, Oral, DAILY, First dose on Sun12/02/19 at 0900, Until Discontinued, Routine glucagon (GLUCAGEN DIAGNOSTIC KIT) injection 1 mg 1 mg, Intramuscular, PRN, Starting Sun12/01/19 at 1123, Until Discontinued, BETTINA, Blood Glucose < or = 70 mg/dL and patient is unable to swallow or has mental changes. glucagon (GLUCAGEN DIAGNOSTIC KIT) injection 1 mg 1 mg, Intravenous, PRN - SEE INSTRUCTIONS, Starting Sun12/01/19 at 1123, Until Discontinued, Routine, glucose below 60 12/02/2019 8:53 AM CDT 20 mEq KCL (KLOR-CON M20) tablet 20 mEq Given 20 mEq, Oral, DAILY, First dose on Sun12/02/19 at 0900, Until Discontinued 12/02/2019 8:53 AM CDT 1 tablet lactobacillus acidophilus (ACIDOPHILLUS) Given 25 million cell -100 mg captab 1 tablet 1 tablet, Oral, DAILY, First dose on 12/02/19 at 0900, Until Discontinued 12/02/2019 5:47 AM CDT 150 mcg levothyroxine (SYNTHROID) tablet 150 mcg Given 150 mcg, Oral, QAM-0600, First dose on Sun12/02/19 at 0600, Until Discontinued ondansetron (ZOFRAN (PF)) injection 4 m g 4 mg, Slow IV Push, Q6HPRN, Starting Mo n 12/01/19 at 1126, Until Discontinued, Routine, Nausea and Vomiting (N/V) 12/02/2019 8:54 AM CDT 40 mg pantoprazole (PROTONIX) EC tablet 40 mg Given 40 mg, Oral, DAILY, First dose on Sun12/02/19 at 0900, Until Discontinued, Routine 12/01/2019 8:01 PM CDT 2 Units Right Ar m Sliding Scale Insulin-Regular + Fsbg Given Testing Subcutaneous, AC+HS, First dose on Sun12/01/19 at 1130, Until Discontinued, Routine 2 Units Left Arm Given 12/01/2019 5:26 PM CDT 5 Units Abdomen-SC Given 12/01/2019 12:58 PM CDT 12/02/2019 8:53 AM CDT 1,000 mg sucralfate (CARAFATE) 100 mg/mL Given suspension 1,000 mg 1,000 mg (1 g), Oral, BID, First dose o n 12/01/19 at 2000, Until Discontinued , Routine 1,000 mg Given 12/01/2019 8:05 PM CDT Action Date Dose Rate Site Medication Order MAR Action 12/01/2019 9:30 AM CDT 12 mg adenosine (ADENOCARD IV) injection Given TITRATE - FOR PROCEDURE USE, 1 dose, Starting 12/01/19 at 0930, Until Sun12/01/19 at 0930, Routine 12/01/2019 9:32 AM CDT 12 mg adenosine (ADENOCARD IV) injection Given TITRATE - FOR PROCEDURE USE, 1 dose, Starting 12/01/19 at 0932, Until Sun12/01/19 at 0932, Routine 12/01/2019 5:26 PM CDT 5 mg apixaban (ELIQUIS) tablet 5 mg Given 5 mg, Oral, ONCE, 1 dose, 12/01/19 a t 1600, Routine 12/02/2019 5:37 AM CDT 1 g magnesium sulfate in D5W 1 gram/100 mL Given RTU IV Piggyback 1 g 1 g, IV Piggyback, ONCE, 1 dose, 12/02/19 at 0600, 100 mL documented in this encounter Insurance Type Payer Benefit Subscriber ID Effective Phone Address Plan / Dates Group POS AETNA AETNA [id number] 2017-P CHOICE POS resent II documented as of this encounter
--- OUTSIDE RECORDS SUMMARY | 2020-03-23 09:52 | XMS REPORT | Summary of Care ---
Author Author [facility] - Health Organization [facility] - Health Address Unknown Phone Unavailable Care Team Providers Care Nurse Aide Name Role Phone Eliseo Hill MD PCP Reason for Visit * Reason Comments Transition Of Care Encounter Details Care Team Description Date Type Department Emily Winchester, RN [address] [place] [id number] Transition Of Care 12/03/2019 Transition of [facility] Allergies No Known Allergiesdocumented as of this encounter (statuses as of 12/03/2019) Medications End Date Status Medication Sig Dispensed [...] Paroxysmal atrial daily for 30 fibrillation days. documented as of this encounter (statuses as of 12/03/2019) Active Problems Problem Noted Date S/P ablation of atrial fibrillation 12/01/2019 Overview: PVI by Dr. Saldaña on 12/01/2019 Obesity (BMI 30-39.9) 12/01/2019 Bradycardia 12/01/2019 documented as of this encounter (statuses as of 12/03/2019) Social History Date Tobacco Use Types Packs/Day [...] Plan / Dates Group POS AETNA AETNA [id number] 2017-P CHOICE POS resent II documented as of this encounter
--- OUTSIDE RECORDS SUMMARY | 2020-03-23 09:52 | XMS REPORT | Summary of Care ---
Author Author [facility] - Health Organization [facility] - Health Address Unknown Phone Unavailable Care Team Providers Care State'S Attorney Name Role Phone Eliseo Hill MD PCP Encounter Details Care Team Description Date Type Department Doctor Unassigned, [place] [address] [place] [address] 11/24/2019 Orders Only [facility] [address] [place] [address] Allergies No Known Allergiesdocumented as of this encounter (statuses as of 12/30/2019) Medications No known medicationsdocumented as of this encounter (statuses as of 12/30/2019) Active Problems Problem Noted Date S/P ablation of atrial fibrillation 12/01/2019 Overview: PVI by Dr. Saldaña on 12/01/2019 Obesity (BMI 30-39.9) 12/01/2019 Bradycardia 12/01/2019 documented as of this encounter (statuses as of 12/30/2019) Social History Date Tobacco Use Types Packs/Day Years Used Never Assessed Sex Assigned at Date Recorded Not on file Industry Job Start Date Occupation Not on file Not on file Not on file Travel End Travel History Travel Start No recent travel history available. Date Recorded COVID-19 Exposure Response 12/01/2019 5:34 AM CDT In the last month, have you been in contact with No / Unsure someone who was confirmed or suspected to have Coronavirus / COVID-19? documented as of this encounter Last Filed Vital Signs Not on filedocumented in this encounter Plan of Treatment Health Maintenance Due Date Last Done Comments HEPATITIS C (HCV) SCREEN 1955 DTaP,Tdap,and Td Vaccines 02/26/1968 (1 - Tdap) COLONOSCOPY 2007 Zoster Recombinant 2007 Vaccine (SHINGRIX) (1 of 2) INFLUENZA VACCINE (Season 04/13/2020 Ended) PNEUMOCOCCAL 0-64 YEARS Aged Out No longer elig ible based COMBINED SERIES on patient's age to complete this topic documented as of this encounter Procedures Comments Procedure Name Priority Date/Time Associated Diag nosis REFERRAL- Routine 11/24/2019 REQUEST/RESPONSE 12:01 AM CDT documented in this encounter Results Not on filedocumented in this encounter Insurance Type Payer Benefit Subscriber ID Effective Phone Address Plan / Dates Group POS AETNA AETNA [id number] 2017-P CHOICE POS resent II documented as of this encounter
--- OUTSIDE RECORDS SUMMARY | 2020-03-23 09:52 | XMS REPORT | Summary of Care ---
Author Author [facility] - Health Organization [facility] - Health Address Unknown Phone Unavailable Care Team Providers Care Tube Dispatcher Name Role Phone Eliseo Hill MD PCP Encounter Details Care Team Description Date Type Department Doctor Unassigned, [place] [address] [place] [address] 12/03/2019 Orders Only [facility] [address] [place] [address] Allergies No Known Allergiesdocumented as of this [...] Procedure Name Priority Date/Time Associated Diag nosis EXTERNAL PROVIDER RECORDS Routine 12/03/2019 12:01 AM CDT documented in this encounter Results Not on filedocumented in this encounter Insurance Type Payer Benefit Subscriber ID Effective Phone Address Plan / Dates Group POS AETNA AETNA [id number] 2017-P CHOICE POS resent II documented as of this encounter
[2020-03-23] MEDS ORDERED: ZOLPIDEM TARTRATE 10 MG TAB PO PRN (11:15)
[2020-03-23] MEDS ORDERED: ACETAMINOPHEN 325 MG TAB PO PRN (11:15)
[2020-03-23] MEDS ORDERED: TRAMADOL HCL 50 MG TAB PO PRN (11:15)
--- NOTE | 2020-03-23 11:37 | NUR ---
pt arrived to room 111. pt awake, alert, in stable condition. no signs of distress.
[2020-03-23] MEDS: DEXTROSE 5%/LACTATED RINGERS 1,000 ML IV SCH ×2 (11:49→19:45)
--- NOTE | 2020-03-23 12:22 | NUR ---
pt tolerated lunch tray of full liquid diet. will advance.
[2020-03-23] MEDS: B&O 60MG R/S 60 MG SUPP PR SCH ×2 (13:02→17:40)
--- NOTE | 2020-03-23 15:18 | NUR ---
PAGED DR. MULTANI REGARDING PT'S FINGERSTICK BLOOD SUGAR OF 214. STATES PT TAKES TRULICITY ONCE A WEEK AND IF PT HAS TAKEN LAST DOSE LESS THAN A WEEK AGO, PUT PT ON LOW DOSE SLIDING SCALE. PT STATES HE TOOK TRULICITY DOSE YESTERDAY; WILL ADD LOW DOSE SS TO ORDERS.
[2020-03-23] MEDS ORDERED: DEXTROSE 50% SYRINGE 50 ML IV PRN (16:00)
[2020-03-23] MEDS: ENTRESTO PO SCH (16:57)
[2020-03-23] MEDS ORDERED: SACUBITRIL/VALSARTAN 1 EACH TABLET PO SCH (17:00)
[2020-03-23] MEDS: INSULIN REGULAR, HUMAN 100 UNIT/1 ML 3ML VIAL SQ SCH ×2 (17:23→21:37)
--- NOTE | 2020-03-23 18:15 | NUR ---
pt's logan irrigated at bedside. no clots visualized. pt tolerated well, no complaints.
--- NOTE | 2020-03-23 19:10 | NUR ---
RECEIVED REPORT FROM PREVIOUS NURSE. CALL LIGHT WITHIN REACH. PATIENT IN BED.
[2020-03-23] MEDS ORDERED: DIPHENHYDRAMINE HCL 25 MG CAP PO SCH (21:00)
[2020-03-23] MEDS ORDERED: SEVOFLURANE INHAL SOLN 250 ML PEN BTL ONE (21:44)
[2020-03-23] MEDS ORDERED: ONDANSETRON HCL INJ 2MG/ML 2ML 2 MG/ML VIAL ONE (21:44)
[2020-03-23] MEDS ORDERED: LIDOCAINE HCL 2% JELLY 5 ML TUBE ONE (21:44)
[2020-03-23] MEDS ORDERED: DEXAMETHASONE SOD PHOS INJ 4 MG/ML VIAL ONE (21:44)
[2020-03-23] MEDS ORDERED: KETOROLAC TROMETHAMINE 30 MG/ML VIAL ONE (21:44)
[2020-03-23] MEDS ORDERED: LIDOCAINE HCL 2% LOCAL INJ 5 ML SDV VIAL INJ ONE (21:44)
[2020-03-23] MEDS ORDERED: PROPOFOL IV EMULSION 10 MG/ML 20 ML VIAL ONE (21:44)
[2020-03-24] VITALS: BP 124/62
[2020-03-24] MEDS: DEXTROSE 5%/LACTATED RINGERS 1,000 ML IV SCH (03:43)
[2020-03-24 04:00] VITALS: BP 118/71
--- NOTE | 2020-03-24 05:00 | NUR ---
[facility] CARE PERFORMED
[2020-03-24] MEDS: B&O 60MG R/S 60 MG SUPP PR SCH ×2 (05:51)
[2020-03-24] MEDS ORDERED: LEVOTHYROXINE SODIUM 100 MCG TAB PO SCH (06:00)
--- NOTE | 2020-03-24 07:01 | NUR ---
GAVE BEDSIDE SHIFT REPORT TO ONCOMING NURSE. CALL LIGHT WITHIN REACH. PATIENT IN BED. HOURLY ROUNDING PERFORMED.
[2020-03-24 07:40] VITALS: BP 134/70
[2020-03-24] MEDS: INSULIN REGULAR, HUMAN 100 UNIT/1 ML 3ML VIAL SQ SCH (08:10)
[2020-03-24] MEDS: ENTRESTO PO SCH (08:38)
[2020-03-24] MEDS ORDERED: POTASSIUM CHLORIDE 20 MEQ TAB CR PO SCH (09:00)
[2020-03-24] MEDS ORDERED: FUROSEMIDE 40 MG TAB PO SCH (09:00)
[2020-03-24] MEDS ORDERED: METOPROLOL SUCCINATE 25 MG TAB XL PO SCH (09:00)
[2020-03-24 09:59] VITALS: BP 134/70
--- NOTE | 2020-03-25 00:52 | Operative Report ---
DATE OF PROCEDURE: 03/24/2020 SURGEON: James Parker MD PREOPERATIVE DIAGNOSIS: Chronic and urinary retention and acute urinary retention with Mireles catheter. POSTOPERATIVE DIAGNOSIS: Bladder stone, BPH. OPERATION PERFORMED: Cystoscopy, removal of bladder stones and transurethral resection of prostate. ANESTHESIOLOGIST: . ANESTHESIA: General. FINDINGS: The patient had a normal urethra, intravesical component of prostate, deep posterior lobe of the prostate, BPH. He had grade 3 trabeculation with cellules and saccules of the bladder. DESCRIPTION OF PROCEDURE: With the patient in satisfactory general anesthesia, the patient was placed in the supine position on the operating table. Legs were placed on stirrups. Genitalia was prepped with pHisoHex solution and draped in usual manner. A #22-Korean cystourethroscope was passed per urethra into the bladder. Immediately noted was trabeculation of the bladder, which was quite severe. The patient had a 1 cm stone, which was grabbed using an alligator forceps and brought out through the urethra. At this point, the resectoscope was placed into the bladder. Bipolar electrode was used with the loop and the plasma button. The loop was used first and resection was done from bladder neck to the verumontanum. Most of the tissue removed was the intravesical component of the prostate to the verumontanum. After the resection was done, which was approximately 15 g to 20 g, the plasma button was introduced and then electrode vaporization of prostatic tissue was done. This was done until I had satisfactorily opened up the prostatic urethra. Bleeding points were then controlled with the electrocautery using the plasma button. I checked again to make sure the ureteral orifices were normal position at the end of the procedure. I incised the bladder neck at the 3, 6 and 9 o'clock position. After that, I control some more bleedings, then I made sure there were no prostatic chips within the bladder itself. The Cognitive Match evacuator was used to remove all of the prostatic chips. At this point, all instruments were removed and a 22-Korean 30 mL catheter balloon was then introduced per urethra into the bladder using the catheter introducer. The bladder was irrigated until the return was clear. A B and O suppository was placed in the rectum. The catheter was placed through a bag. The patient was then taken to recovery room in satisfactory condition. DISCHARGE INSTRUCTIONS: The patient was kept overnight for observation. The next morning the patient was stable, had a normal blood pressure and pulse. The patient was then sent home in satisfactory condition with a leg bag and an overnight bag. He was again told not to take his anticoagulant or aspirin for 4 days. The patient was then given Keflex, gabapentin and tramadol for pain. The patient was told that on Sunday morning he has to come to the office to remove the catheter and give him a voiding trial. The patient understood this and he was discharged. If for any reason the patient stays in the hospital longer, a separate dictation will be made to explain why the patient had to stay an extra day. MD PAUL CabreraG/MODL /[id number] cc: Eliseo Hill
[2020-03-29] MEDS ORDERED: (Dulaglutide (Trulicity) 1.5 MG) SC SCH (09:00)
[2020-03-30] MEDS ORDERED: ANASTROZOLE 1 MG TAB PO SCH (09:00)
== END 2020-03-24 10:15 | disposition home or self-care (01) ==
LOC: OR 05:28 → PACU V 09:25 → MED/SURG 10:39
PROVIDERS: ADMIT Urology; ATTEND Urology
DX: R33.9 Retention of urine, unspecified (principal); Z01.812 Encounter for preprocedural laboratory examination; Z01.818 Encounter for other preprocedural examination; Z11.59 Encounter for screening for other viral diseases; N40.1 Benign prostatic hyperplasia with lower urinary tract symptoms; R33.8 Other retention of urine; N21.0 Calculus in bladder
CPT/HCPCS: 36415 ×3; 52601; 71046; 80053; 82948 ×2; 85025; 87086; 87186; 88300; 88305; G0378 ×2; J0690; J1100; J1817; J1885; J2001 ×2; J2405; J2704; J7121 ×2; U0002

== ENCOUNTER → 2020-08-24 | Outpatient (CLI) | payer OTHER ==
[~2020-08-24] MED LIST changes: +BENADRYL25 M1 PO
[2020-08-24 08:49] LABS: BASOPHILS % 0.3 % (0.0-1.0); EOSINOPHILS # (AUTO) 0.2 (0.0-0.4); EOSINOPHILS % 2.9 % (0.0-6.0); HEMATOCRIT 44.8 % (38.2-49.6); HEMOGLOBIN 14.6 g/dL (14.0-18.0); LYMPHOCYTES # (AUTO) 2.5 (1.0-3.2); LYMPHOCYTES % 40.6 % (18.0-39.1); MEAN CORPUSCULAR HEMOGLOBIN 30.5 pg (28-32); MEAN CORPUSCULAR HGB CONC 32.6 g/dL (31-35); MEAN CORPUSCULAR VOLUME 93.7 fL (81-99); MONOCYTES # (AUTO) 0.8 (0.2-0.8); MONOCYTES % 12.1 % (4.4-11.3); NEUTROPHILS # (AUTO) 2.7 (2.1-6.9); NEUTROPHILS % 43.9 % (38.7-80.0); PLATELET COUNT 210 x10e3/uL (140-360); RED BLOOD COUNT 4.78 x10e6/uL (4.3-5.7); RED CELL DISTRIBUTION WIDTH 12.4 % (11.7-14.4)
== END ==
LOC: DX 21:37 → EDSTATUS 08-27 09:00
PROVIDERS: ATTEND Internal Medicine Gastroenterology
DX: Z01.812 Encounter for preprocedural laboratory examination (principal); Z01.818 Encounter for other preprocedural examination; Z20.822 Contact with and (suspected) exposure to COVID-19; Z12.11 Encounter for screening for malignant neoplasm of colon
CPT/HCPCS: 36415; 85025; 93005; U0002